=== PATIENT | male | born 1950 | race Caucasian/White ===

== ENCOUNTER → 2023-05-09 23:59 | Outpatient (BNV) | payer MEDICARE, OTHER, SELFPAY | PROVIDERS: PCP Internal Medicine; Visit Provider Internal Medicine | DX: R07.89 Other chest pain (principal); I10 Essential (primary) hypertension; Z95.5 Presence of coronary angioplasty implant and graft; E78.5 Hyperlipidemia, unspecified | CPT/HCPCS: 99223 ==

== ENCOUNTER 2023-06-05 14:44 | Outpatient (AMB) | payer MEDICARE, OTHER, SELFPAY ==
[2023-06-05 15:01] VITALS: BP 120/56; PULSE 52; BMI 31.5
--- NOTE | 2023-06-05 15:01 | MHC.OFFVIS ---
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: No Accompanied by: Spouse Allergies No Known Allergies Allergy (Verified 06/05/23 15:02) Medication List - Last Reconciled 06/05/23 by Dwayne Gerard MD alfuzosin ER 10 mg PO DAILY amlodipine 5 mg PO DAILY aspirin (Adult Aspirin Regimen) 81 mg PO DAILY atorvastatin 80 mg PO DAILY carvedilol 6.25 mg PO BID donepezil 5 mg PO DAILY dulaglutide (Trulicity) 4.5 mg subcut QWEEK empagliflozin (Jardiance) 10 mg PO DAILY glipizide 10 mg PO DAILY irbesartan 150 mg PO DAILY isosorbide mononitrate ER 30 mg PO DAILY metformin ER 750 mg PO BID mirabegron ER (Myrbetriq) 50 mg PO DAILY omeprazole 20 mg PO DAILY HPI HPI Comments History of Present Illness Details Lopez returns for follow-up after recent hospitalization to [facility]. He was admitted for substernal chest pain and he had described it as if it was a 1000 lb weight sitting on his chest. Troponins were elevated. There was conduction system disease in the EKG. High blood pressure initially but then improved. Eventually, underwent cardiac catheterization but there was no new findings and no interventions performed. He has not had any further chest pain since that time. would like to switch his cardiac care from [facility]. Otherwise, there is a history of prior PCI to LAD in 2008 and circumflex in 2017. According to , there was also an episode of syncope just about the time he also had chest pain. Somehow this was not described during the hospitalization. That has not recurred as well. states that during the actual syncope/chest pain episode he also had bladder incontinence. Etiology for the syncope part is not clear. 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 Essential hypertension Type 2 diabetes mellitus with unspecified complications Bifascicular block Atherosclerotic cardiovascular disease Surgical History (Updated 06/05/23 @ 15:05 by Dania Hester) Hx of cardiac cath Family History (Updated 06/05/23 @ 15:05 by Dania Hester) Mother Heart problem Social History (Updated 06/05/23 @ 15:06 by Dania Hester) Alcohol intake: former Patient Tobacco Use Status: Former Tobacco user Quit Date: 40 years ago Review of Systems Const Denies chills, Denies daytime sleepiness, Denies fatigue, Denies fever(s), Denies frequent falls, Denies night sweats, Denies snoring, Denies weakness, Denies weight gain and Denies weight loss Eyes Denies loss of vision ENT Denies dizziness and Denies hearing loss Card Denies chest pain, Denies chest pain with activity, Denies syncope, Denies rapid heart rate, Denies edema, Denies claudication, Denies leg edema, Denies lightheadedness, Denies palpitations, Denies dyspnea, Denies dyspnea on exertion and Denies orthopnea Resp Denies cough, Denies excessive phlegm production, Denies dyspnea, Denies dyspnea on exertion, Denies snoring and Denies wheezing GI Denies abdominal pain, Denies hematochezia, Denies change in bowel habits, Denies change in stool character, Denies heartburn, Denies nausea and Denies vomiting Denies hematuria, Denies dysuria and Denies urinary frequency Musc Denies arthralgias, Denies muscle weakness, Denies numbness and Denies tingling Skin/Breast Denies nail changes and Denies rash Neuro Denies Abnormal speech present, Denies dizziness, Denies syncope, Denies frequent falls, Denies loss of vision, Denies memory loss, Denies numbness, Denies tingling and Denies weakness Psych Denies depression and Denies memory loss Endo Denies fatigue and Denies palpitations Aller/Immun Denies wheezing Physical Exam Vital Signs: Last Vital Signs Pulse 52 06/05/23 15:01 BP 120/56 L 06/05/23 15:01 BMI result Body Mass Index 31.5 Const General: comfortable and no acute distress Orientation/consciousness: patient oriented x3 HEENT Other: Unremarkable Head: Yes normal to inspection Neck Neck: Yes normal visual inspection Chest Chest palpation & inspection: normal inspection of the chest Resp Auscultation: clear to auscultation bilaterally Cardio Palpation: normal PMI Heart sounds: S1 normal heart sound present, S2 normal heart sound present, no gallops, no murmurs and no rubs GI Palpation (GI): Soft to palpation Back/Spine/Pelvis Other: unremarkable Skin General skin exam: no rashes or lesions noted Neuro General: patient oriented x3 Speech: No Abnormal speech present Extrem General: Yes normal to inspection Psych Mental Status: mental status grossly normal Office Procedures EKG Details: EKG with sinus bradycardia at 52/Min; [place] prolongation to 244 milliseconds; right bundle-branch block and left anterior fascicular block. [id number], Complete Assessment & Plan Assessment & Plan (1) Atherosclerotic cardiovascular disease: Code(s): I25.10 - Atherosclerotic heart disease of [place] coronary artery without angina pectoris Plan: In the most recent cardiac catheterization from 04/2023, patent stents in the mid LAD and mid circumflex. Chronic 40% ostial OM2 stenosis. Minimal irregularities in the left main and RCA. Continue aspirin long-term. Continue statins. Per [facility] chart, LDL controlled at 70 mg/dL. Triglycerides 60 mg/dL. (2) Bifascicular block: Code(s): I45.2 - Bifascicular block Plan: Regarding the question of syncope that the is describing, we can do a 2 week Holter to look for any advanced degree heart blocks. Coreg can worsen conduction system disease but he also needs for hypertension. Hence may continue for now. (3) Essential hypertension: Code(s): I10 - Essential (primary) hypertension Plan: Seems controlled. Currently on list of meds including amlodipine, carvedilol, irbesartan. No changes. Plan Discussed in detail with who came for appointment. Orders: Orders ECG 14 day holter monitor Today I45.2 - Bifascicular block Coding Level of Care Code Est Pt Level 4 (34848) Diagnoses Atherosclerotic cardiovascular disease I25.10 Bifascicular block I45.2 Essential hypertension I10 CPT Codes EKG - CPT: 50544-[id number], Complete ([id number])
== END 2023-06-05 15:34 | disposition home or self-care (01) ==
PROVIDERS: PCP Internal Medicine; Visit Provider Internal Medicine
DX: I25.10 Atherosclerotic heart disease of native coronary artery without angina pectoris (principal); I45.2 Bifascicular block; I10 Essential (primary) hypertension
CPT/HCPCS: 93010; 99214

== ENCOUNTER → 2023-06-05 14:44 | Outpatient (BNVA) | payer MEDICARE, OTHER, SELFPAY | PROVIDERS: PCP Internal Medicine; Visit Provider Internal Medicine | DX: I25.10 Atherosclerotic heart disease of native coronary artery without angina pectoris (principal); I10 Essential (primary) hypertension; I45.2 Bifascicular block | CPT/HCPCS: 93005; 99212 ==

== ENCOUNTER → 2023-06-10 10:32 | Outpatient (REF) | payer MEDICARE, OTHER, SELFPAY ==
--- NOTE | 2023-06-10 10:38 | HM_ITS ---
* Total monitoring time 9 days and 14 hours. * Underlying rhythm is sinus with an average ventricular rate of 56/Min. Range 45 to 84/Min. * Occasional PVCs with a burden of 0.9%. Some couplets. Bigeminy noted. Multiple morphologies. * Occasional supraventricular ectopy with a burden of 0.6%. Very brief runs. * No significant pauses or AV blocks. * No patient markers or diary events. MTDD
== END ==
LOC: HO.CARD 10:32
PROVIDERS: Visit Provider Internal Medicine
DX: I45.2 Bifascicular block (principal)
CPT/HCPCS: 93246

== ENCOUNTER → 2023-06-10 10:38 | Outpatient (BNV) | payer MEDICARE, OTHER, SELFPAY | PROVIDERS: Visit Provider Internal Medicine | DX: I49.3 Ventricular premature depolarization (principal) | CPT/HCPCS: 93248 ==

== ENCOUNTER 2023-09-04 13:47 | Outpatient (AMB) | payer MEDICARE, OTHER, SELFPAY ==
[2023-09-04 13:50] VITALS: BP 140/60; PULSE 50; O2SAT 99; BMI 30.7
--- NOTE | 2023-09-04 13:50 | MHC.OFFVIS ---
Vital Signs 09/04/23 13:50 Height 5 ft 2 in Weight 167 lb 15.876 oz BMI 30.7 BP 140/60 H Blood Pressure Location Rt brachial Position Sitting Pulse 50 Pulse Source Pulse Oximeter Pulse Oximetry (%) 99 Intake Visit Reasons: 3 mth fu after holter Clinical Education Academic Coordinator Required: No Accompanied by: Self / Same As Patient Allergies No Known Allergies Allergy (Verified 06/05/23 15:02) Medication List - Last Reconciled 09/04/23 by Dwayne Gerard MD alfuzosin ER 10 mg PO DAILY amlodipine 5 mg PO DAILY aspirin (Adult Aspirin Regimen) 81 mg PO DAILY atorvastatin 80 mg PO DAILY carvedilol 6.25 mg PO BID donepezil 5 mg PO DAILY dulaglutide (Trulicity) 4.5 mg subcut QWEEK empagliflozin (Jardiance) 10 mg PO DAILY glipizide ER 5 mg PO DAILY irbesartan 150 mg PO DAILY isosorbide mononitrate ER 30 mg PO DAILY metformin ER 750 mg PO BID mirabegron ER (Myrbetriq) 50 mg PO DAILY omeprazole 20 mg PO DAILY HPI Comments Details: Lopez returns for follow-up. To recall, he was admitted to [facility] 2 months with chest pain. Troponins were elevated. There was conduction system disease in the EKG. High blood pressure initially but then improved. Eventually, underwent cardiac catheterization but there was no new findings and no interventions performed. He has not had any further chest pain since that time. Prior to that, there is a history of PCI to LAD in 2009 and PCI to circumflex in 2017. He then switched his care to [facility]. According to , there was also an episode of syncope just about the time he also had chest pain. No issues since that time. Currently, main complaint is just feeling tired and sleepy all day. 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 Essential hypertension Type 2 diabetes mellitus with unspecified complications Bifascicular block Atherosclerotic cardiovascular disease Surgical History Hx of cardiac cath Family History Mother Heart problem Social History Alcohol intake: former Patient Tobacco Use Status: Former Tobacco user Quit Date: 40 years ago Review of Systems Const Denies chills, Denies fatigue, Denies fever(s), Denies frequent falls, Denies weakness, Denies weight gain and Denies weight loss ENT Denies dizziness Card Denies chest pain, Denies leg edema, Denies lightheadedness, Denies palpitations, Denies dyspnea and Denies dyspnea on exertion Resp Denies cough, Denies dyspnea and Denies dyspnea on exertion GI Denies hematochezia Musc Denies abnormal gait, Denies muscle weakness, Denies numbness, Denies radiating pain into limb and Denies tingling Neuro Denies abnormal gait, Denies dizziness, Denies frequent falls, Denies numbness, Denies tingling and Denies weakness Endo Denies fatigue and Denies palpitations Physical Exam Vital Signs: Last Vital Signs Pulse 50 09/04/23 13:50 BP 140/60 H 09/04/23 13:50 Pulse Ox 99 09/04/23 13:50 BMI result Body Mass Index 30.7 Const General: comfortable and no acute distress Orientation/consciousness: patient oriented x3 HEENT Other: Unremarkable Head: Yes normal to inspection Neck Neck: Yes normal visual inspection Chest Chest palpation & inspection: normal inspection of the chest Resp Auscultation: clear to auscultation bilaterally Cardio Palpation: normal PMI Heart sounds: S1 normal heart sound present, S2 normal heart sound present, no gallops, no murmurs and no rubs GI Palpation (GI): Soft to palpation Back/Spine/Pelvis Other: unremarkable Skin General skin exam: no rashes or lesions noted Neuro General: patient oriented x3 Extrem General: Yes normal to inspection Psych Mental Status: mental status grossly normal Assessment & Plan Assessment & Plan (1) Atherosclerotic cardiovascular disease: Code(s): I25.10 - Atherosclerotic heart disease of [place] coronary artery without angina pectoris Category: Medical Plan: In the most recent cardiac catheterization from 04/2023, patent stents in the mid LAD and mid circumflex. Chronic 40% ostial OM2 stenosis. Minimal irregularities in the left main and RCA. Continue aspirin and statins. Per [facility] chart, LDL controlled at 70 mg/dL. Triglycerides 60 mg/dL. (2) Bifascicular block: Code(s): I45.2 - Bifascicular block Category: Medical Plan: Due to question of syncope he underwent Holter monitor. That showed underlying sinus bradycardia with an average rate of 56/Min. Rare PVCs/PACs but no significant pauses or heart blocks. Hence can monitor the EKGs. (3) Essential hypertension: Code(s): I10 - Essential (primary) hypertension Category: Medical Plan: Seems controlled. Currently on list of meds including amlodipine, carvedilol, irbesartan. Due to complaints of tiredness and sleepiness, we discussed about cutting back on carvedilol but they would like to just leave things the way they are. (4) Fatigue: Code(s): R53.83 - Other fatigue Category: Medical Plan: Due to complaints of daytime fatigue and sleepiness, we will get a home sleep study. Plan Discussed in detail with who came for appointment. Orders: Orders RT home sleep study Today G47.33 - Obstructive sleep apnea (adult) (pediatric)
== END 2023-09-04 14:17 | disposition home or self-care (01) ==
PROVIDERS: PCP Internal Medicine; Visit Provider Internal Medicine
DX: I25.10 Atherosclerotic heart disease of native coronary artery without angina pectoris (principal); I45.2 Bifascicular block; I10 Essential (primary) hypertension; R53.83 Other fatigue
CPT/HCPCS: 99214

== ENCOUNTER → 2023-09-04 13:47 | Outpatient (BNVA) | payer MEDICARE, OTHER, SELFPAY | PROVIDERS: PCP Internal Medicine; Visit Provider Internal Medicine | DX: R07.9 Chest pain, unspecified (principal); I45.2 Bifascicular block; I25.10 Atherosclerotic heart disease of native coronary artery without angina pectoris; I10 Essential (primary) hypertension; R53.83 Other fatigue | CPT/HCPCS: 99212 ==

== ENCOUNTER → 2023-10-14 15:57 | Outpatient (REF) | payer MEDICARE, OTHER, SELFPAY | LOC: HO.SL 15:57 | PROVIDERS: Visit Provider Internal Medicine | DX: Z13.89 Encounter for screening for other disorder (principal) ==

== ENCOUNTER 2023-12-04 11:01 | Outpatient (AMB) | payer MEDICARE, OTHER, SELFPAY ==
[2023-12-04 11:02] VITALS: BP 100/60; PULSE 62; BMI 29.9
--- NOTE | 2023-12-04 11:02 | A.OFFVIS_ITS ---
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: No Accompanied by: Spouse Allergies No Known Allergies Allergy (Verified 06/05/23 15:02) Medication List - Last Reconciled 12/04/23 by Dwayne Gerard MD alfuzosin ER 10 mg PO DAILY aspirin (Adult Aspirin Regimen) 81 mg PO DAILY atorvastatin 80 mg PO DAILY donepezil 5 mg PO DAILY empagliflozin (Jardiance) 10 mg PO DAILY glipizide ER 5 mg PO DAILY irbesartan 150 mg PO DAILY isosorbide mononitrate ER 30 mg PO DAILY metformin ER 750 mg PO ONCE mirabegron ER (Myrbetriq) 50 mg PO DAILY omeprazole 20 mg PO DAILY semaglutide (Ozempic) 0.25 mg subcut QWEEK HPI Comments Details: Lopez returns for follow-up. To recall, he was admitted to [facility] few months back with chest pain. Troponins were elevated. There was conduction system disease in the EKG. High blood pressure initially but then improved. Eventually, underwent cardiac catheterization but there was no new findings and no interventions performed. He has not had any further chest pain since that time. Prior to that, there is a history of PCI to LAD in 2008 and PCI to circumflex in 2017. He then switched his care to [facility]. Overall, main complaint is just feeling tired and sleepy. It seems there may be component of depression as well. From the cardiac standpoint, we ordered home sleep study. It seems that was done twice but incorrectly. Hence we do not have any results. Also low blood pressure might be an issue and today blood pressure is only 100/60 mmHg. It seems that PCP had advised cutting back on the amlodipine. 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 Essential hypertension Type 2 diabetes mellitus with unspecified complications Bifascicular block Atherosclerotic cardiovascular disease Surgical History Hx of cardiac cath Family History Mother Heart problem Social History Alcohol intake: former Patient Tobacco Use Status: Former Tobacco user Review of Systems Const Denies chills, Denies fatigue, Denies fever(s), Denies weight gain and Denies weight loss ENT Denies dizziness Card Denies chest pain, Denies leg edema, Denies lightheadedness, Denies palpitations, Denies dyspnea on exertion, Denies orthopnea and Denies other Resp Denies cough and Denies dyspnea on exertion GI Denies hematochezia and Denies change in stool character Musc Denies abnormal gait, Denies muscle weakness, Denies numbness, Denies radiating pain into limb and Denies tingling Neuro Denies abnormal gait, Denies dizziness, Denies numbness and Denies tingling Endo Denies fatigue and Denies palpitations Physical Exam Vital Signs: Last Vital Signs Pulse 62 12/04/23 11:02 BP 100/60 12/04/23 11:02 BMI result Body Mass Index 29.9 Const General: comfortable and no acute distress Orientation/consciousness: patient oriented x3 HEENT Other: Unremarkable Head: Yes normal to inspection Neck Neck: Yes normal visual inspection Chest Chest palpation & inspection: normal inspection of the chest Resp Auscultation: clear to auscultation bilaterally Cardio Palpation: normal PMI Heart sounds: S1 normal heart sound present, S2 normal heart sound present, no gallops, no murmurs and no rubs GI Palpation (GI): Soft to palpation Back/Spine/Pelvis Other: unremarkable Skin General skin exam: no rashes or lesions noted Neuro General: patient oriented x3 Extrem General: Yes normal to inspection Psych Mental Status: mental status grossly normal Assessment & Plan Assessment & Plan (1) Atherosclerotic cardiovascular disease: Code(s): I25.10 - Atherosclerotic heart disease of [place] coronary artery without angina pectoris Category: Medical Plan: Cardiac catheterization from 04/2023- patent stents in the mid LAD and mid circumflex. Chronic 40% ostial OM2 stenosis. Minimal irregularities in the left main and RCA. Continue aspirin and statins. [place] [facility] [place], LDL controlled at 70 mg/dL. Triglycerides 60 mg/dL. (2) Bifascicular block: Code(s): I45.2 - Bifascicular block Category: Medical Plan: Due to question of syncope he underwent Holter monitor. That showed underlying sinus bradycardia with an average rate of 56/Min. Rare PVCs/PACs but no significant pauses or heart blocks. We will monitor on EKGs. (3) Essential hypertension: Code(s): I10 - Essential (primary) hypertension Category: Medical Plan: Per patient and , blood pressure has been low. PCP had advised cutting back on the amlodipine but they are not taking at all. He is also not taking carvedilol anymore. In spite of this, blood pressure is only 100/60 mm Hg. This could also contribute tiredness and fatigue. As he has got no angina, we can stop the long-acting nitrates. They will monitor blood pressures. Next step would be to cut back on the irbesartan if needed. (4) Fatigue: Code(s): R53.83 - Other fatigue Category: Medical Plan: We attempted home sleep study twice but not done correctly. Hence we can try in-lab sleep study. Plan Discussed with significant other. She agrees with plan. Orders: Orders RT PSG in-lab sleep study Today G47.33 - Obstructive sleep apnea (adult) (pediatric) Coding Level of Care Code Est Pt Level 4 (40641) Diagnoses Atherosclerotic cardiovascular disease I25.10 Bifascicular block I45.2 Essential hypertension I10 Fatigue R53.83
== END 2023-12-04 11:39 | disposition home or self-care (01) ==
PROVIDERS: PCP Internal Medicine; Visit Provider Internal Medicine
DX: I25.10 Atherosclerotic heart disease of native coronary artery without angina pectoris (principal); I45.2 Bifascicular block; I10 Essential (primary) hypertension; R53.83 Other fatigue
CPT/HCPCS: 99214

== ENCOUNTER → 2023-12-04 11:01 | Outpatient (BNVA) | payer MEDICARE, OTHER, SELFPAY | PROVIDERS: PCP Internal Medicine; Visit Provider Internal Medicine | DX: I25.10 Atherosclerotic heart disease of native coronary artery without angina pectoris (principal); I10 Essential (primary) hypertension; I45.2 Bifascicular block; R53.83 Other fatigue; G47.33 Obstructive sleep apnea (adult) (pediatric) | CPT/HCPCS: 99212 ==

== ENCOUNTER → 2023-12-11 20:30 | Outpatient (REF) | payer MEDICARE, OTHER, SELFPAY | LOC: HO.SL 20:30 | PROVIDERS: PCP Internal Medicine; Visit Provider Internal Medicine | DX: G47.33 Obstructive sleep apnea (adult) (pediatric) (principal) | CPT/HCPCS: 95810 ==

== ENCOUNTER → 2023-12-11 22:59 | Outpatient (BNV) | payer MEDICARE, OTHER, SELFPAY | PROVIDERS: PCP Internal Medicine; Visit Provider Internal Medicine | DX: G47.33 Obstructive sleep apnea (adult) (pediatric) (principal) | CPT/HCPCS: 95810 ==

== ENCOUNTER → 2024-01-21 23:59 | Outpatient (BNV) | payer MEDICARE, OTHER, SELFPAY ==
--- NOTE | 2024-01-28 18:51 | A.OFFVIS_ITS ---
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 Overall normal device function. [id number] Cardiac Device Interrogation, pacemaker Procedure code (CPT) selection complete Assessment & Plan Assessment & Plan (1) Complete heart block: Code(s): I44.2 - Atrioventricular block, complete Category: Medical Plan x Coding Level of Care Code Procedure Only Diagnoses Complete heart block I44.2 CPT Codes Cardiac Device Check - Cardiac Device 12: 43440-Wmizox Cardiac Device Interrogation, pacemaker ([id number])
== END ==
PROVIDERS: PCP Internal Medicine; Visit Provider Internal Medicine
DX: I44.2 Atrioventricular block, complete (principal); Z95.0 Presence of cardiac pacemaker
CPT/HCPCS: 93294

== ENCOUNTER 2024-01-28 11:13 | Outpatient (AMB) | payer MEDICARE, OTHER, SELFPAY ==
[2024-01-28 11:15] VITALS: BP 112/58; PULSE 70; BMI 29.8
--- NOTE | 2024-01-28 11:15 | MHC.OFFVIS ---
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 To recall, he was admitted to [facility] 04/2023 with chest pain. Troponins were elevated. There was conduction system disease in the EKG. High blood pressure initially but then improved. Eventually, underwent cardiac catheterization but there was no new findings and no interventions performed. Prior to that, there is a history of PCI to LAD in 2008 and PCI to circumflex in 2016. He then switched his care to [facility]. In December 2023, it seems that he has some chest pain and near-syncope and got admitted to [facility]. At that time, found to be in complete heart block. Then underwent cardiac catheterization but no significant findings. Reported as normal coronaries. Subsequently, underwent dual-chamber pacemaker implantation. Overall, main complaint is just tiredness. Unclear if it is related depression. There does not seem to be any obvious cardiac etiology. 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 Essential hypertension Type 2 diabetes mellitus with unspecified complications Bifascicular block Atherosclerotic cardiovascular disease Surgical History (Updated 01/28/24 @ 11:19 by Jeimy Cutler CMA) Pacemaker Hx of cardiac cath Family History Mother Heart problem Social History Alcohol intake: former Patient Tobacco Use Status: Former Tobacco user Review of Systems Const Denies chills, Denies fatigue, Denies fever(s), Denies weight gain and Denies weight loss ENT Denies dizziness Card Denies chest pain, Denies leg edema, Denies lightheadedness, Denies palpitations, Reports dyspnea on exertion, Denies orthopnea and Denies other Resp Denies cough and Reports dyspnea on exertion GI Denies hematochezia and Denies change in stool character Musc Denies abnormal gait, Denies muscle weakness, Denies numbness, Denies radiating pain into limb and Denies tingling Neuro Denies abnormal gait, Denies dizziness, Denies numbness and Denies tingling Endo Denies fatigue and Denies palpitations Physical Exam Vital Signs: Last Vital Signs Pulse 70 01/28/24 11:15 BP 112/58 L 01/28/24 11:15 BMI result Body Mass Index 29.8 Const General: comfortable and no acute distress Orientation/consciousness: patient oriented x3 HEENT Other: Unremarkable Head: Yes normal to inspection Neck Neck: Yes normal visual inspection Chest Chest palpation & inspection: normal inspection of the chest Resp Auscultation: clear to auscultation bilaterally Cardio Palpation: normal PMI Heart sounds: S1 normal heart sound present, S2 normal heart sound present, no gallops, no murmurs and no rubs GI Palpation (GI): Soft to palpation Back/Spine/Pelvis Other: unremarkable Skin General skin exam: no rashes or lesions noted Neuro General: patient oriented x3 Extrem General: Yes normal to inspection Psych Mental Status: mental status grossly normal Assessment & Plan Assessment & Plan (1) Atherosclerotic cardiovascular disease: Code(s): I25.10 - Atherosclerotic heart disease of [place] coronary artery without angina pectoris Category: Medical Plan: Cardiac catheterization from 04/2023- patent stents in the mid LAD and mid circumflex. Chronic 40% ostial OM2 stenosis. Minimal irregularities in the left main and RCA. Cardiac catheterization from 12/2023 at [place]- reported normal coronaries. Continue aspirin and statins. Per records from [place], LDL 38 mg/dL, triglycerides 45 mg/dL. (2) Complete heart block: Code(s): I44.2 - Atrioventricular block, complete Category: Medical Plan: Admitted with complete heart block to [facility] 01/06/2024. Status post permanent pacemaker. We can check with next visit. Otherwise, being followed remotely. (3) Essential hypertension: Code(s): I10 - Essential (primary) hypertension Category: Medical Plan: Due to low blood pressure issues, off amlodipine, carvedilol, long-acting nitrates. If necessary, we can cut back on the irbesartan. (4) Fatigue: Code(s): R53.83 - Other fatigue Category: Medical Plan: In-lab sleep study reported as no evidence of sleep apnea and also minimal snoring. Unclear if it is related to any depression. He might be seeing a psychiatrist. Plan Discussed with significant other. Coding Level of Care Code Est Pt Level 4 (66673) Diagnoses Atherosclerotic cardiovascular disease I25.10 Complete heart block I44.2 Essential hypertension I10 Fatigue R53.83
== END 2024-01-28 11:50 | disposition home or self-care (01) ==
PROVIDERS: PCP Internal Medicine; Visit Provider Internal Medicine
DX: I25.10 Atherosclerotic heart disease of native coronary artery without angina pectoris (principal); I44.2 Atrioventricular block, complete; I10 Essential (primary) hypertension; R53.83 Other fatigue
CPT/HCPCS: 99214

== ENCOUNTER → 2024-01-28 11:13 | Outpatient (BNVA) | payer MEDICARE, OTHER, SELFPAY | PROVIDERS: PCP Internal Medicine; Visit Provider Internal Medicine | DX: I25.10 Atherosclerotic heart disease of native coronary artery without angina pectoris (principal); I44.2 Atrioventricular block, complete; I10 Essential (primary) hypertension; R53.83 Other fatigue | CPT/HCPCS: 99212 ==

== ENCOUNTER → 2024-04-08 23:59 | Outpatient (BNV) | payer MEDICARE, OTHER, SELFPAY ==
--- NOTE | 2024-04-18 18:57 | A.OFFVIS_ITS ---
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 Overall normal device function. [id number]-Gvqemd Cardiac Device Interrogation, pacemaker Procedure code (CPT) selection complete Assessment & Plan Assessment & Plan (1) Pacemaker: Code(s): Z95.0 - Presence of cardiac pacemaker Category: Surgical (2) Complete heart block: Code(s): I44.2 - Atrioventricular block, complete Category: Medical Plan x Coding Level of Care Code Procedure Only Diagnoses Pacemaker Z95.0 Complete heart block I44.2 CPT Codes Cardiac Device Check - Cardiac Device 12: 15735-Hlmdlm Cardiac Device Interrogation, pacemaker ([id number])
== END ==
PROVIDERS: PCP Internal Medicine; Visit Provider Internal Medicine
DX: I44.2 Atrioventricular block, complete (principal); Z95.0 Presence of cardiac pacemaker
CPT/HCPCS: 93294

== ENCOUNTER 2024-05-31 13:46 | Outpatient (AMB) | payer MEDICARE, OTHER, SELFPAY ==
--- NOTE | 2024-05-31 14:02 | MHC.OFFVIS ---
Vital Signs 05/31/24 14:03 Height 5 ft 2 in Weight 165 lb 5.547 oz BMI 30.2 BP 130/78 Blood Pressure Location Lt brachial Position Sitting Pulse 68 Pulse Source Monitor Intake Visit Reasons: f/up/pacer check Allergies No Known Allergies Allergy (Verified 06/05/23 15:02) Medication List - Last Reconciled 05/31/24 by Dwayne Gerard MD aspirin (Adult Aspirin Regimen) 81 mg PO DAILY atorvastatin 80 mg PO DAILY donepezil 5 mg PO DAILY empagliflozin (Jardiance) 10 mg PO DAILY glipizide ER 5 mg PO DAILY irbesartan 150 mg PO DAILY metformin ER 750 mg PO ONCE mirabegron ER (Myrbetriq) 50 mg PO DAILY omeprazole 20 mg PO DAILY semaglutide (Ozempic) 0.25 mg subcut QWEEK HPI Comments Details: Lopez returns for follow-up. To recall, he was admitted to [facility] 04/2023 with chest pain. Troponins were elevated. There was conduction system disease in the EKG. High blood pressure initially but then improved. Eventually, underwent cardiac catheterization but there was no new findings and no interventions performed. Prior to that, there is a history of PCI to LAD in 2008 and PCI to circumflex in 2016. He then switched his care to [facility]. In December 2023, it seems that he has some chest pain and near-syncope and got admitted to [facility]. At that time, found to be in complete heart block. Then underwent cardiac catheterization but no significant findings. Reported as normal coronaries. Subsequently, underwent dual-chamber pacemaker implantation. Since last seen, he states he feels good. No cardiac symptoms whatsoever. 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 Essential hypertension Type 2 diabetes mellitus with unspecified complications Bifascicular block Atherosclerotic cardiovascular disease Surgical History (Updated 04/18/24 @ 18:58 by Dwayne Gerard MD) Pacemaker Hx of cardiac cath Family History Mother Heart problem Social History Alcohol intake: former Patient Tobacco Use Status: Former Tobacco user Review of Systems Const Denies weakness ENT Denies dizziness Card Denies chest pain, Denies chest pain with activity, Denies syncope, Denies rapid heart rate, Denies pedal edema, Denies edema, Denies leg edema, Denies lightheadedness, Denies palpitations, Denies dyspnea, Denies dyspnea on exertion and Denies orthopnea Resp Denies cough, Denies dyspnea and Denies dyspnea on exertion GI Denies hematochezia and Denies change in stool character Musc Denies abnormal gait, Denies muscle cramps, Denies muscle weakness, Denies numbness, Denies radiating pain into limb and Denies tingling Neuro Denies abnormal gait, Denies dizziness, Denies syncope, Denies numbness, Denies tingling and Denies weakness Endo Denies palpitations Physical Exam Vital Signs: Last Vital Signs Pulse 68 05/31/24 14:03 BP 130/78 05/31/24 14:03 BMI result Body Mass Index 30.2 Const General: comfortable and no acute distress Orientation/consciousness: patient oriented x3 HEENT Other: Unremarkable Head: Yes normal to inspection Neck Neck: Yes normal visual inspection Chest Chest palpation & inspection: normal inspection of the chest Resp Auscultation: clear to auscultation bilaterally Cardio Palpation: normal PMI Heart sounds: S1 normal heart sound present, S2 normal heart sound present, no gallops, no murmurs and no rubs GI Palpation (GI): Soft to palpation Back/Spine/Pelvis Other: unremarkable Skin General skin exam: no rashes or lesions noted Neuro General: patient oriented x3 Extrem General: Yes normal to inspection Psych Mental Status: mental status grossly normal Office Procedures Cardiac Device Check Cardiac Device Check Details: Pacemaker interrogated today. Dual-chamber device, programmed in AAIR-DDDR mode. Battery status 14 years. Atrial pacing 55%. Ventricular pacing 7.1%. AT/AF burden <0.1%. No episodes since last [facility] transmission. Normal lead parameters. Underlying sinus bradycardia at 48/Min. [id number] Cardiac Device Check, pacemaker dual lead Procedure code (CPT) selection complete EKG Details: EKG with underlying sinus rhythm, prolonged SD, right bundle-branch block and left anterior fascicular block. Bifascicular block. [id number]-Bhcaqjuygnbhdmvyl, Complete Assessment & Plan Assessment & Plan (1) Atherosclerotic cardiovascular disease: Code(s): I25.10 - Atherosclerotic heart disease of rampart coronary artery without angina pectoris Category: Medical Plan: Cardiac catheterization from 04/2023- patent stents in the mid LAD and mid circumflex. Chronic 40% ostial OM2 stenosis. Minimal irregularities in the left main and RCA. Cardiac catheterization from 12/2023 at [facility]- reported normal coronaries. Continue aspirin and statins. Per records from [facility], LDL 38 mg/dL, triglycerides 45 mg/dL. (2) Complete heart block: Code(s): I44.2 - Atrioventricular block, complete Category: Medical Plan: Admitted with complete heart block to [facility] 01/06/2024. Status post permanent pacemaker. Normally functioning. Can be followed remotely. (3) Essential hypertension: Code(s): I10 - Essential (primary) hypertension Category: Medical Plan: Due to low blood pressure issues, off amlodipine, carvedilol, long-acting nitrates. No further changes made today. Coding Level of Care Code Est Pt Level 4 (00339) Diagnoses Atherosclerotic cardiovascular disease I25.10 Complete heart block I44.2 Essential hypertension I10 CPT Codes Cardiac Device Check - Cardiac Device 2: 36540-JX Cardiac Device Check, pacemaker dual lead ([id number]) EKG - CPT: 37163-Qfilzftoosotkukyj, Complete ([id number])
[2024-05-31 14:03] VITALS: BP 130/78; PULSE 68; BMI 30.2
== END 2024-05-31 14:27 | disposition home or self-care (01) ==
PROVIDERS: PCP Internal Medicine; Visit Provider Internal Medicine
DX: I25.10 Atherosclerotic heart disease of native coronary artery without angina pectoris (principal); I44.2 Atrioventricular block, complete; I10 Essential (primary) hypertension
CPT/HCPCS: 93010; 93280; 99214

== ENCOUNTER → 2024-05-31 13:46 | Outpatient (BNVA) | payer MEDICARE, OTHER, SELFPAY | PROVIDERS: PCP Internal Medicine; Visit Provider Internal Medicine | DX: Z45.018 Encounter for adjustment and management of other part of cardiac pacemaker (principal); I25.10 Atherosclerotic heart disease of native coronary artery without angina pectoris; I44.2 Atrioventricular block, complete; I10 Essential (primary) hypertension; I45.2 Bifascicular block; R94.31 Abnormal electrocardiogram [ECG] [EKG] | CPT/HCPCS: 93005; 93280; 99212 ==

== ENCOUNTER → 2024-07-23 23:59 | Outpatient (BNV) | payer MEDICARE, OTHER, SELFPAY ==
--- NOTE | 2024-07-26 14:10 | MHC.OFFVIS ---
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 Overall normal device function. [id number] Cardiac Device Interrogation, pacemaker Procedure code (CPT) selection complete Assessment & Plan Assessment & Plan (1) Pacemaker: Code(s): Z95.0 - Presence of cardiac pacemaker Category: Surgical (2) Bifascicular block: Code(s): I45.2 - Bifascicular block Category: Medical Plan x Coding Level of Care Code Procedure Only Diagnoses Pacemaker Z95.0 Bifascicular block I45.2 CPT Codes Cardiac Device Check - Cardiac Device 12: 49442-Fngziz Cardiac Device Interrogation, pacemaker ([id number])
== END ==
PROVIDERS: PCP Internal Medicine; Visit Provider Internal Medicine
DX: I45.2 Bifascicular block (principal); Z95.0 Presence of cardiac pacemaker
CPT/HCPCS: 93294

== ENCOUNTER → 2024-10-21 23:59 | Outpatient (BNV) | payer MEDICARE, OTHER, SELFPAY ==
--- NOTE | 2024-10-27 20:44 | A.OFFVIS_ITS ---
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 Overall normal device function. [id number] Cardiac Device Interrogation, pacemaker Procedure code (CPT) selection complete Assessment & Plan Assessment & Plan (1) Pacemaker: Code(s): Z95.0 - Presence of cardiac pacemaker Category: Surgical (2) Complete heart block: Code(s): I44.2 - Atrioventricular block, complete Category: Medical Plan x Coding Level of Care Code Procedure Only Diagnoses Pacemaker Z95.0 Complete heart block I44.2 CPT Codes Cardiac Device Check - Cardiac Device 12: 06181-Affgox Cardiac Device Interrogation, pacemaker ([id number])
== END ==
PROVIDERS: PCP Internal Medicine; Visit Provider Internal Medicine
DX: I44.2 Atrioventricular block, complete (principal); Z95.0 Presence of cardiac pacemaker
CPT/HCPCS: 93294

== ENCOUNTER 2024-12-01 13:36 | Outpatient (AMB) | payer MEDICARE, OTHER, SELFPAY ==
--- OUTSIDE RECORDS SUMMARY | 2024-07-20 09:00 | XMS_ITS | Encounter Summary ---
Author Name [facility] [facility] [place] Address [address] [place] [address] Care Team Providers Care Track Helper Name Role Phone FORTINO SIDHU Primary Care Provider Unavailabl e Insurance Providers: All historical and current Section Date Range: From patient's date of to the date document was created. This section includes the names of all active insurance providers for the patient. Insurance Provider Type of Coverage Plan Name Start of Policy Coverage End of Policy Coverage Group Number Member ID Insurance Provider's Telephone Number Policy Quiles's Name Patient's Relationship to Policy Quiles MEDICARE (WNR) MEDICARE (M) PART B Nov 16, 2022 PART B [id number] [place] PAT[place] MEDICARE (WNR) MEDICARE (M) PART A May 19, 2014 PART A [id number] [place] PATIENT MEDICARE (WNR) MEDICARE (M) PART A May 19, 2014 PART A [id number] [place] PATIENT Selected Encounter This section includes the information on record at [place] for the Encounter. Date/Time Encounter Type Encounter Description Reason Provider Source Jul 20, 2024 01:00 PM OFFICE O/P [place] 60 MIN [facility]AL [facility] - IND ICD-10-CM F43.12 Post-traumatic stress disorder, chronic ROGERBALAJI IHYanely Encounter Template Text not used by [facility] Assessments - Encounter Diagnoses This section includes the primary and secondary diagnoses documented for the Encounter. Date/Time Primary/Secondary Diagnosis Diagnosis Name Provider Source Jul 20, 2024 03:05 PM PRIMARY Post-traumatic stress disorder, chronic BALAJI DURAN Plan of Treatment: Future Appointments (+ 6 months) and Future Tests (+/- 45 days) The Plan of Treatment section includes future care activities for the patient [facility] This section includes future appointments and future orders which are active, pending or scheduled. Future Appointments This section includes appointments that were scheduled to occur 6 months from the date of the Encounter, up to a maximum of 20 appointments. The data comes from all [place] treatment facilities. Appointment Date/Time Appointment Type Appointme nt Facility Name Aug 05, 2024 11:30 AM AMBULATORY - PSYCHIATRY [facility] Nov 24, 2024 01:30 PM AMBULATORY - PSYCHIATRY [facility] Social History: Smoking Status (Most current) and Tobacco Use (All prior to encounter date) This section includes the most current, and the historical, smoking and tobacco- related health factors from the [place] facility where the Encounter took place. Current Smoking Status This section includes the most current smoking, or tobacco-related health factor, from the [place] facility where the Encounter took place. Date/Time Current Smoking Status Comment Facil ity Nov 13, 2023 09:00 AM [facility]-TOBACCO FORMER USER [place] Tobacco Use History This section includes a history of the smoking, or tobacco-related health factors, that were collected on or before the date of the Encounter. The data comes from the [facility] facility where the Encounter took place. Date/Time Smoking Status/Tobacco Use Comment F acgenevieve Nov 13, 2023 09:00 AM [facility]-TOBACCO QUIT 15 YRS OR MORE [facility] Encounter Notes: All associated encounter notes This section contains the clinical notes associated to the Encounter. Date/Time Encounter Note(s) Provider Source Jul 20, 2024 02:13 PM PSYCHIATRY NOTE: LOCAL TITLE: PSYCHIATRY NOTE STANDARD TITLE: PSYCHIATRY NOTE DATE OF NOTE: JUL 20, 2024@14:13 ENTRY DATE: JUL 20, 2024@14:14 AUTHOR: BALAJI DURAN COSIGNER: URGENCY: STATUS: COMPLETED MENTAL HEALTH CLINIC: PSYCHIATRY PATIENT SUMMARY: 74 year old 100% service connected male [employer] [place] presents for mental health medication evaluation. [place] endorses PTSD symptoms of hypervigilance, depression, insomnia, and anxiety. Latoya is neatly groomed with good eye contact. He is neatly groomed and pleasant, with no evidence of psychosis, AH/VH, or roxy. Latoya denies any thoughts of self-harm and or harm to others. Latoya had a second heart attack this winter, and had a pacemaker implanted, He has retired he's not working and feels worthless , now he has time to think about things he reports he has been having more dreams/nightmares (about [place]), feels that he has no purpose . Latoya endorses increased fatigue, depression, I feel lazy , like a bum , I don't sleep , I need to get some sleep . Latoya is and has an extensive social support network. He is currently participating in individual psychotherapy at the [facility]. He is interested in psychopharmacological treatment however, he is ambivalent about mental health treatment, not wanting to be taking any substance that could be addictive or make him feel like a zombi . Please see uniform intake completed 01/06/2024 for more details. HISTORY OF PRESENT ILLNESS Mood: Depressed mood Anxiety: Endorses anxiety and PTSD symptomology. Sleep: Reports poor sleep with frequent waking approx. 3-4 hours a night. Substance Use: Denied use - former alcohol use and marijuana. Psychosis: None Suicidal/Homicidal Ideation: denies PAST PSYCHIATRIC HISTORY [place] has been apprehensive to taking mental health medications due to concerns with addiction and negative side effects. MEDICAL HISTORY: reviewed problem list in CPRS ALLERGIES: reviewed and updated in CPRS MEDICATIONS: reviewed and updated in CPRS Active Outpatient Medications (including Supplies): Active Outpatient Medications Status 1) MELATONIN 1MG CAP/TAB TAKE ONE CAPSULE/TABLET BY MOUTH AT ACTIVE BEDTIME (MAY TAKE A SECOND DOSE IF INITIAL DOSE IS NOT EFFECTIVE) Indication: FOR INSOMNIA 2) SERTRALINE HCL 25MG TAB TAKE ONE-HALF TABLET BY MOUTH ONCE ACTIVE DAILY Indication: FOR POSTTRAUMATIC STRESS SYNDROME Active Non-VA Medications Status 1) Non-VA ALFUZOSIN HCL 10MG SA TAB 10MG BY MOUTH ONCE DAILY ACTIVE 2) Non-VA AMLODIPINE BESYLATE 5MG TAB 5MG BY MOUTH ONCE DAILY ACTIVE 3) Non-VA ASPIRIN 81MG EC TAB 81MG BY MOUTH ONCE DAILY ACTIVE 4) Non-VA ATORVASTATIN CALCIUM 80MG TAB 80MG BY MOUTH ONCE ACTIVE DAILY 5) Non-VA CARVEDILOL 6.25MG TAB 6.25MG BY MOUTH TWICE DAILY ACTIVE 6) Non-VA DONEPEZIL HCL 10MG TAB 10MG BY MOUTH ONCE DAILY ACTIVE 7) Non-VA EMPAGLIFLOZIN 10MG TAB 10MG BY MOUTH ONCE DAILY ACTIVE 8) Non-VA IRBESARTAN 150MG TAB 150MG BY MOUTH ONCE DAILY ACTIVE 9) Non-VA ISOSORBIDE MONONITRATE 30MG SA TAB 30MG BY MOUTH ONCE ACTIVE DAILY 10) Non-VA LEVETIRACETAM 500MG TAB 500MG BY MOUTH TWICE DAILY ACTIVE 11) Non-VA METFORMIN HCL 750MG 24HR SA TAB 750MG BY MOUTH ONCE ACTIVE DAILY 12) Non-VA MIRABEGRON 50MG SA TAB 50MG BY MOUTH ONCE DAILY ACTIVE 13) Non-VA OMEPRAZOLE 20MG EC CAP 20MG BY MOUTH EVERY MORNING 30 ACTIVE MINUTES BEFORE BREAKFAST 14) Non-VA SEMAGLUTIDE 0.25MG/0.375ML INJ PEN 3ML 0.5MG ACTIVE SUBCUTANEOUSLY ONCE A WEEK 15) Non-VA VIBEGRON 75MG TAB 75MG BY MOUTH ONCE DAILY ACTIVE 17 Total Medications MENTAL STATUS EXAM: Appearance: consistent w/ stated age, appropriate grooming and hygiene Motor: no tics, tremors, or abnormal movements Speech: normal rate, volume and articulation Thought process: normal rate, logical and coherent Associations: linear Thought content: denies hallucinations, delusions, or paranoia. Denies homicidal thoughts. Denies suicidal ideation, intent or plan to harm self. Insight and Judgment: both intact Cognition: alert and oriented x 4, good attention, memory grossly intact to conversational testing. Mood: euthymic, depressed - brightens appropriately with conversation. Affect: congruent with mood. LABS AND STUDIES: N/A SAFETY ASSESSMENT: No acute safety concerns. Convincingly denies any thoughts, intents, or plans to harm self or others. 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 He is service- connected for medical difficulties as well as PTSD. Latoya presents with significant symptoms of low mood following a series of health setbacks including two heart attacks which resulted in him senior living. His symptoms of low mood(denies SI/HI)fatigue, anhedonia, apathy, tearfulness and feelings of worthlessness and hopelessness. 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 He has a history of alcohol abuse (but stopped drinking amid his medical issues). In addition to symptoms of depression, Latoya also reports PTSD symptoms including an increase in intrusive traumatic ideation, hypervigilance, and feelings of guilt also coinciding with his forced senior living. He is and has an extensive social support network. He also reports some decline in memory I forget how to drive somewhere . Diagnosis: PTSD, insomnia, anxiety, and depression. PLAN: We collaboratively discussed treatment options including pharmacological interventions. Will start gently with low dosages of melatonin and sertraline to target his difficulty with sleep, depression and PTSD symptomology. Meds: Start: melatonin 1mg at bedtime, may take a second 1mg dosage by mouth if initial dosage in not effective - to target insomnia. sertraline 12.5mg by mouth daily - to target PTSD, depression, anxiety, sleep. Psychotherapy: Continue with therapy at the [facility]. Medical: Has community providers as well as a PCP here at [facility] - Latoya is interested in having his medications filled at the [facility] and was informed of steps to take to have his medications ordered through [facility]. Labs: N/A Follow-Up: 2 weeks, sooner if needed. Discussed risks and benefits of proposed medication treatments including FDA approved indications and off-label uses, as well as common and severe side effects. [place] comprehended all information discussed, had opportunity to ask questions which were answered to their satisfaction, and voluntarily and without duress agreed to trial as documented. CONTACT AND CRISIS INFO: The is aware of my contact information, including the Patient Call Center and my voicemail. We have reviewed the Crisis Hotline (988, dial #1 for line), and the [place] has been instructed to call 911 or go to the nearest ED if acutely suicidal or experiencing a mental health emergency. CONFIDENTIALITY: The limits of confidentiality have been reviewed, including with regards to risk of suicide or homicide, potential elder or child abuse/neglect, and my role as a mandated acreage reporter. CODING: Total time today was 60 minutes, providing counseling and education, and time spent reviewing the record, ordering meds, completing documentation, and coordinating care. CLINICAL REMINDERS: n/a /keeley/ JOSE LAMB, JAI- PSYCHIATRIC MENTAL HEALTH NURSE PRACTITIONER Signed: 07/20/2024 15:05 BALAJI DURAN Jul 20, 2024 08:12 AM PSYCHIATRY CONSULT : LOCAL TITLE: CONSULT REPORT/MENTAL HEALTH/PSYCHIATRY STANDARD TITLE: PSYCHIATRY CONSULT DATE OF NOTE: JUL 20, 2024@08:12 ENTRY DATE: JUL 30, 2024@08:13:04 AUTHOR: MARISABEL RAYIGNER: URGENCY: STATUS: COMPLETED Consult completed by JAI Lamb on 07/20, please see chart /keeley/ Marisabel Ray Psy.D. OPERATING ROOM ASSISTANT, CLINICAL PSYCHOLOGIST Signed: 07/30/2024 08:13 MARISABEL RAY
--- NOTE | 2024-12-01 13:39 | MHC.OFFVIS ---
Vital Signs 12/01/24 13:40 Height 5 ft 2 in Weight 163 lb BMI 29.8 BP 108/60 Blood Pressure Location Lt brachial Position Sitting Pulse 82 Pulse Source Pulse Oximeter Intake Visit Reasons: 6m follow up Allergies No Known Allergies Allergy (Verified 06/05/23 15:02) Medication List - Last Reconciled 12/01/24 by Dwayne Gerard MD aspirin (Adult Aspirin Regimen) 81 mg PO DAILY atorvastatin 80 mg PO DAILY donepezil 5 mg PO DAILY empagliflozin (Jardiance) 10 mg PO DAILY glipizide ER 5 mg PO DAILY irbesartan 150 mg PO DAILY metformin ER 750 mg PO ONCE mirabegron ER (Myrbetriq) 50 mg PO DAILY omeprazole 20 mg PO DAILY semaglutide (Ozempic) 0.25 mg subcut QWEEK HPI Comments Details: Lopez returns for follow-up. To recall, he was admitted to [facility] 2022 with chest pain. Troponins were elevated. There was conduction system disease in the EKG. High blood pressure initially but then improved. Eventually, underwent cardiac catheterization but there was no new findings and no interventions performed. Prior to that, there is a history of PCI to LAD in 2008 and PCI to circumflex in 2016. He then switched his care to [facility]. In December 2023, it seems that he has some chest pain and near-syncope and got admitted to [facility]. At that time, found to be in complete heart block. Then underwent cardiac catheterization but no significant findings. Reported as normal coronaries. Subsequently, underwent dual-chamber pacemaker implantation. Over the last few months, he denies any new complaints. He states he has generally been feeling okay. No clear-cut symptoms like angina. Nonspecific tiredness. 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 Essential hypertension Type 2 diabetes mellitus with unspecified complications Bifascicular block Atherosclerotic cardiovascular disease Surgical History (Updated 04/18/24 @ 18:58 by Dwayne Gerard MD) Pacemaker Hx of cardiac cath Family History Mother Heart problem Social History Alcohol intake: former Patient Tobacco Use Status: Former Tobacco user Review of Systems Const Denies weakness ENT Denies dizziness Card Denies chest pain, Denies chest pain with activity, Denies syncope, Denies rapid heart rate, Denies pedal edema, Denies edema, Denies leg edema, Denies lightheadedness, Denies palpitations, Denies dyspnea, Denies dyspnea on exertion and Denies orthopnea Resp Denies cough, Denies dyspnea and Denies dyspnea on exertion GI Denies hematochezia and Denies change in stool character Musc Denies abnormal gait, Denies muscle cramps, Denies muscle weakness, Denies numbness, Denies radiating pain into limb and Denies tingling Neuro Denies abnormal gait, Denies dizziness, Denies syncope, Denies numbness, Denies tingling and Denies weakness Endo Denies palpitations Physical Exam Vital Signs: Last Vital Signs Pulse 82 12/01/24 13:40 BP 108/60 12/01/24 13:40 BMI result Body Mass Index 29.8 Const General: comfortable and no acute distress Orientation/consciousness: patient oriented x3 HEENT Other: Unremarkable Head: Yes normal to inspection Neck Neck: Yes normal visual inspection Chest Chest palpation & inspection: normal inspection of the chest Resp Auscultation: clear to auscultation bilaterally Cardio Palpation: normal PMI Heart sounds: S1 normal heart sound present, S2 normal heart sound present, no gallops, no murmurs and no rubs GI Palpation (GI): Soft to palpation Back/Spine/Pelvis Other: unremarkable Skin General skin exam: no rashes or lesions noted Neuro General: patient oriented x3 Extrem General: Yes normal to inspection Psych Mental Status: mental status grossly normal Assessment & Plan Assessment & Plan (1) Atherosclerotic cardiovascular disease: Code(s): I25.10 - Atherosclerotic heart disease of [place] coronary artery without angina pectoris Category: Medical Plan: Cardiac catheterization from 04/2023- patent stents in the mid LAD and mid circumflex. Chronic 40% ostial OM2 stenosis. Minimal irregularities in the left main and RCA. Cardiac catheterization from 12/2023 at [facility]- reported normal coronaries. Continue aspirin and statins. Per records from [facility], LDL 38 mg/dL, triglycerides 45 mg/dL. (2) Complete heart block: Code(s): I44.2 - Atrioventricular block, complete Category: Medical Plan: Admitted with complete heart block to [facility] 2023. Status post permanent pacemaker. Normally functioning. Can be followed remotely. We will recheck with next visit. (3) Essential hypertension: Code(s): I10 - Essential (primary) hypertension Category: Medical Plan: Due to low blood pressure issues, off amlodipine, carvedilol, long-acting nitrates. Listed to be on Irbesartan. No changes. Coding Level of Care Code Est Pt Level 4 (06266) Diagnoses Atherosclerotic cardiovascular disease I25.10 Complete heart block I44.2 Essential hypertension I10
[2024-12-01 13:40] VITALS: BP 108/60; PULSE 82; BMI 29.8
--- OUTSIDE RECORDS SUMMARY | 2024-12-01 14:28 | XMS_ITS | Clinical Summary ---
Author Organization [employer] Address [address] [place] [address] Care Team Providers Care Apartment Maintenance Supervisor Name Role Phone Unavailable Primary Care Provider Unavailabl e Immunizations Immunization Administration Dates Next Due Influenza High-dose Quadriva lent Preservative Free 02/07/2022,03/01/2021 Influenza Quadrivalent Adjuvanted 02/04/2023 Influenza, High Dose Seasona l, Preservative Free 02/27/2018,01/16/2017,01/17/2016 Influenza, IIV3, injectable 03/02/2009 Influenza, seasonal, injecta ble, preservative free 01/21/2020,02/01/2015 Influenza, trivalent, adjuvanted 01/08/2019 Pfizer Covid-19 Vaccine 12+ 02/13/2023 Pneumococcal Conjugate PCV 13 10/24/2014 Pneumococcal Polysaccharide PPSV23 01/17/2016, Tdap 02/20/2015 Zoster, Recombinant 03/10/2019,01/08/2019 Zoster, live 11/12/2014,03/19/2014 Social History Tobacco Use Types Packs/Day Years Used Date Smoking Tobacco: Never Assessed Sex and Gender Information Value Date Recorded Sex Assigned at Male 03/18/2022 10:37 AM EDT Legal Sex Male 10:37 AM EDT Gender Identity Male 03/18/2022 10:37 AM EDT Sexual Orientation Straight 03/18/2022 10 :37 AM EDT Plan of Treatment Health Maintenance Due Date Last Done Comments Depression Screening 1950 Lipid Panel 1948 SDOH Screening 1948 Alcohol/Substance Use Screening 1960 Tobacco Screening 1960 Hepatitis C Screening 1966 RSV Patients and Patients Aged 60 years or older (1 - 1-dose 75+ series) 2023 COVID-19 Vaccine ( season) 2024 02/13/2023, 02/07/2022, 10/18/2021, Additional history exists Influenza Vaccine (#1) 2025 , 02/07/2022, 03/01/2021, Additional history exists DTaP/Tdap/Td Vaccines (2 - Td or Tdap) 02/20/2025 02/20/2015 Pneumococcal Vaccine: 50+ Years Completed 01/17/2016, 10/24/2014, 03/02/2009 Zoster Vaccines Completed 03/10/2019, 12/18, 11/12/2014, Additional history exists HIB Vaccines Aged Out No longer eligi ble based on patient's age to complete this topic HPV Vaccines Aged Out No longer eligi ble based on patient's age to complete this topic Hepatitis A Vaccines Aged Out No long er eligible based on patient's age to complete this topic Hepatitis B Vaccines Aged Out No long er eligible based on patient's age to complete this topic IPV Vaccines Aged Out No longer eligi ble based on patient's age to complete this topic Meningococcal B Vaccine Aged Out No l onger eligible based on patient's age to complete this topic Meningococcal Vaccine Aged Out No shawn yomi eligible based on patient's age to complete this topic RSV under 20 months Aged Out No longe r eligible based on patient's age to complete this topic Rotavirus Vaccines Aged Out No longer eligible based on patient's age to complete [place] [id number] [facility]
--- OUTSIDE RECORDS SUMMARY | 2024-12-01 14:28 | XMS_ITS | Clinical Summary ---
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 02/04/2020 Stage 2 chronic kidney disease 08/31/2019 Hypertensive renal disease 02/13/2017 Diarrhea 01/30/2017 Hyperlipidemia 04/25/2016 Acute non-ST elevation myocardial infarction (NS BRIAN) 02/27/2009 Social History Tobacco Use Types Packs/Day Years Used Date Smoking Tobacco: Never Assessed Sex and Gender Information Value Date Recorded Sex Assigned at Not on file Legal Sex Male 4:40 PM EDT Gender Identity Not on file Sexual Orientation Not on file Last Filed Vital Signs Vital Sign Reading Time Taken Comments Blood Pressure 162/71 02/25/2022 11:00 PM EDT Pulse 58 02/25/2022 9:00 PM EDT Temperature 36.6 C (97.8 F) 02/25/2022 4:54 PM EDT Respiratory Rate 16 02/25/2022 11:00 PM EDT Oxygen Saturation 100% 02/25/2022 11:00 PM EDT Inhaled Oxygen Concentration - - Weight 77.1 kg (170 lb) 02/25/2022 4:54 PM EDT Height 165.1 cm (5' 5 ) 02/25/2022 4:54 PM EDT Body Mass Index 28.29 02/25/2022 4:54 PM EDT Plan of Treatment Health Maintenance Due Date Last Done Comments Hepatitis C Screening 1950 Ophthalmology Exam 1958 Fall Risk Screening 2013 Urine Protein Screening 02/03/2021 02/04/2020, 02/13 RSV 60+ (1 - 1-dose 75+ series) 2023 Medicare Annual Wellness Visit 07/10/2023 07/10/2022, 07/02/2021, 04/28/2020, Additional history exists COVID-19 Vaccine ( season) 2024 02/13/2023, 02/07/2022, 10/18/2021, Additional history exists Influenza Vaccine (#1) 2025 , 02/07/2022, 03/01/2021, Additional history exists Tdap and Td Vaccines Adult 02/20/2025 02/20/2015 Colonoscopy Discontinued 05/08/2015 Colorectal Cancer Screening Discontinued Pneumococcal Vaccine: 50+ Years Completed 01/17/2016, 10/24/2014, 03/02/2009 Zoster Vaccines Completed 03/10/2019, 02/17, 01/08/2019, Additional history exists CT Colonography Discontinued FIT-DNA Discontinued FIT Discontinued FOBT Discontinued HIB Vaccines Aged Out No longer eligi ble based on patient's age to complete this topic HPV Vaccines (No Doses Required) Completed Hepatitis A Vaccines Aged Out No long er eligible based on patient's age to complete this topic IPV Vaccines Aged Out No longer eligi ble based on patient's age to complete this topic Lipid Panel Discontinued Meningococcal Vaccine Aged Out No shawn yomi eligible based on patient's age to complete this topic RSV <20 Months Aged Out No longer balbina gible based on patient's age to complete this topic Sigmoidoscopy Discontinued Insurance [employer] [place] [address] [place] [id number] Care Teams Office Administrator Relationship Specialty Start Date End Date Hebert Bernstein MD [address] [address] PCP - General Internal Medicine 02/25/22
--- OUTSIDE RECORDS SUMMARY | 2024-12-01 14:28 | XMS_ITS | Data Portability ---
Author Organization [facility], Main Office Address [address] [place] [id number] Care Team Providers Care Cost Consultant Name Role Phone SHIRLEY BERNSTEIN Primary Care Provider BRENDA REILLY Social Worker Health Services [facility] Orthopedic Surgeon [facility] Urologist SHARLA MONTANO [employer] E[employer] DOMONIQUE MCNAMARA Referring Provider JOSTIN HUERTA Neurologist MARICHUY GUERRERO Social Worker Health Services LINN TURCIOS Referring Provider Assessment Encounter Date Assessment Date Assessment LastModified by Organization Details LastModified Time 10/13/2024 10/13/2024 Total time spent 45 minutes coordinating care, reviewing ER notes and recent labs. [facility] [place] coordinator contacted during visit to discuss pt case and initiated referral. Not available 10/13/2024 15:04:38 Plan of Treatment Reminders Order Date Submit Date Provider Last Modified By Organization Details Last Modified Time Details Appointments FOLLOW UP 2024 01:30P Summer guerrero MD Not available Not available Not available Lab hemoglobi n A1C, fingersti ck 2024 025 LAURA In-Office Order, Internal Use Only DO Not Attach Compendium DO Not Attach Compendium, Do Not Delete/merge, [id number] 10/13/2024 11:24:11 hemoglobi n A1C, fingersti ck 2023 024 In-Office Order, Internal Use Only DO Not Attach Compendium DO Not Attach Compendium, Do Not Delete/merge, [id number] 04/02/2024 10:58:20 Referral diabetic ophthalmo logy referral 2024 025 dee Not available 10/14/2024 08:30:15 medical case worker/c are coordinat or referral - Coordinat e care between PCP team , other providers , [facility]. Dx: dementia, coronary atheroscl erosis, syncope, hypertens ion, diabetes. 2024 025 dee Not available 10/14/2024 08:30:34 gastroent erologist referral - Needs colon cancer screening 2024 025 LAURA Reilly MD, [address] [facility], [address], [place], [address], 10/26/2024 10:18:49 orthopedi c surgeon referral - Bilateral knee pain and pain with walking. Probable OA 2024 025 [email or web address] [place] Orthopedic Surgeon, [address], [address], [place], [address], 07/29/2024 09:02:38 Procedures colonosco py screening (PROC) 2024 025 dee Reilly MD, [address], [address], [place], [address], 07/22/2024 10:40:07 Surgeries None recorded. Imaging None recorded. Medication Orders fluticaso ne propionat e 50 mcg/actua tion nasal spray,baltazar pension 2024 025 LAURA [facility]/Pharmacy #[id number], [address], [place], [address], 07/21/2024 13:47:24 fluticaso ne propionat e 50 mcg/actua tion nasal spray,baltazar pension 2023 024 [email or web address] [facility]/Pharmacy #[id number], [address] [place], [address], 09/15/2024 11:21:28 Patient TargetsNo targets recorded. Patient Instructions Encounter Date Encounter Id Patient Instructions Last Modified By Organization Details Last Modified Time 01/14/2024 [id number] medicines to avoid with kidney disease: care instructions [email or web address] Not available 01/22/2024 15:26:23 eustachian tube problems: care instructions acennerazzo Not available 01/14/2024 10:47:21 bradycardia: care instructions acennerazzo Not available 01/14/2024 12:14:04 Medications (OTC, herbal therapies, supplements) reviewed and reconciled with patient and or caregiver, including potential side effects, drug interactions, instructions, and the consequences of not taking medication. Reviewed potential barriers to medication adherence, such as side effects from medication or cost of medication. Not available 01/14/2024 10:02:17 04/02/2024 [id number] medicines to avoid with kidney disease: care instructions Not available 04/02/2024 10:58:20 Medications (OTC, herbal therapies, supplements) reviewed and reconciled with patient and or caregiver, including potential side effects, drug interactions, instructions, and the consequences of not taking medication. Reviewed potential barriers to medication adherence, such as side effects from medication or cost of medication. Not available 04/02/2024 09:34:21 07/21/2024 [id number] allergies: care instructions acennerazzo Not available 07/21/2024 13:47:23 dementia: care instructions acennerazzo Not available 07/23/2024 13:47:04 helping A person with dementia: care instructions acennerazzo Not available 07/23/2024 13:47:04 preventing falls: care instructions acennerazzo Not available 07/21/2024 13:37:46 well visit, over 65: care instructions acennerazzo Not available 07/21/2024 13:37:45 high cholesterol: care instructions acennerazzo Not available 07/23/2024 13:47:04 medicines to avoid with kidney disease: care instructions acennerazzo Not available 07/23/2024 13:47:04 learning about colon cancer acennerazzo Not available 07/21/2024 13:48:56 benign prostatic hyperplasia: care instructions acennerazzo Not available 07/23/2024 13:47:04 09/10/2024 [id number] During [facility] f/u call, all current and discharge medications (OTC, herbal therapies, supplements) reviewed and reconciled with patient, including potential side effects, drug interactions, instructions, and the consequences of not taking medication. Reviewed potential barriers to medication adherence, such as side effects from medication or cost of medication. blaine Not available 09/10/2024 10:52:10 10/13/2024 [id number] dementia: care instructions Not available 10/13/2024 15:03:40 helping A person with dementia: care instructions Not available 10/13/2024 15:03:40 learning about type 2 diabetes Not available 10/13/2024 11:35:21 type 2 diabetes: care instructions Not available 10/13/2024 11:35:21 high blood pressure: care instructions Not available 10/13/2024 11:35:21 learning about high blood pressure Not available 10/13/2024 11:35:21 Medications (OTC, herbal therapies, supplements) reviewed and reconciled with patient and or caregiver, including potential side effects, drug interactions, instructions, and the consequences of not taking medication. Reviewed potential barriers to medication adherence, such as side effects from medication or cost of medication. Not available 10/13/2024 11:06:51 Reason for Referral Orthopedic Surgeon Referral for Pain of bilateral knee joints Bilateral knee pain and pain with walking. Probable OA Referring Physician: Shirley [facility], Encounter Date: 07/21/2024 Social Worker Health Services Referral for Screening for malignant neoplasm of colon Needs colon cancer screening Referring Physician: Shirley Bernstein [facility], Encounter Date: 07/21/2024 Diabetic Ophthalmology Refer ral for Type 2 diabetes mellitus Referring Physician: Yessenia Obrien, Internal Medicine, Encounter Date: 10/13/2024 Human Resources Benefits Specialist/care Coordinato r Referral for Essential hypertension Coordinate care between PCP team , other providers , [facility]. Dx: dementia, coronary atherosclerosis, syncope, hypertension, diabetes. Referring Physician: Yessenia Obrien, Internal Medicine, Encounter Date: 10/13/2024 Results Created Date Observation Date Name Description Value Unit Range Abnormal Flag Note LastModifiedBy Organization Detail LastModifiedTime 12/31/19 24 12/31/2023 hemog lobin A1C, finge rstic k A1C 7.3 % 4-6 abnormal Not Available In-Office Order Internal Use Only DO Not Attach Compendium DO Not Attach Compendium, Do Not Delete/merge, [id number] 12/31/2023 10:08:45 01/30/2001/30/2024 COMP. METAB OLIC PANEL (14) calcium 9.5 mg/dL 8.6-10 .2 normal Not Available [facility] [address] [place], [address], 01/31/2024 16:07:57 01/30/20 24 01/30/2024 COMP. METAB OLIC PANEL (14) protein, total 6.5 g/dL 6.0-8. 5 normal Not Available [facility] [address] [place], [address], 01/31/2024 16:07:57 01/30/20 24 01/30/2024 COMP. METAB OLIC PANEL (14) albumin 4.3 g/dL 3.8-4. 8 normal Not Available [facility] ([facility]) [address] [place], [address], 01/31/2024 16:07:57 01/30/20 24 01/30/2024 COMP. METAB OLIC PANEL (14) globulin, total 2.2 g/dL 1.5-4. 5 Not Available [facility] [address] [place], [address], 01/31/2024 16:07:57 01/30/20 24 01/30/2024 COMP. METAB OLIC PANEL (14) bilirubin, total 0.5 mg/dL 0.0-1. 2 normal Not Available [facility] [address] [place], [address], 01/31/2024 16:07:57 01/30/20 24 01/30/2024 COMP. METAB OLIC PANEL (14) alkaline phosphatase 85 IU/L 44-121 normal Not Available [facility] [address] [place], [address], 01/31/2024 16:07:57 01/30/20 24 01/30/2024 COMP. METAB OLIC PANEL (14) AST (SGOT) 19 IU/L 0-40 normal Not Available [facility] [address] [place], [address], 01/31/2024 16:07:57 01/30/20 24 01/30/2024 COMP. METAB OLIC PANEL (14) ALT (SGPT) 17 IU/L 0-44 normal Not Available [facility] [address] [place], [address], 01/31/2024 16:07:57 01/30/20 24 01/31/2024 COMP. METAB OLIC PANEL (14) glucose 160 mg/dL 70-99 above high normal Not Available [facility] [address] [place], [address], 01/31/2024 16:07:57 01/30/20 24 01/31/2024 COMP. METAB OLIC PANEL (14) BUN 14 mg/dL 8-27 normal Not Available [facility] [address] [place], [address], 01/31/2024 16:07:57 01/30/20 24 01/31/2024 COMP. METAB OLIC PANEL (14) creatinine 1.12 mg/dL 0.76-1 .27 normal Not Available [facility] [address] [place], [address], 01/31/2024 16:07:57 01/30/20 24 01/31/2024 COMP. METAB OLIC PANEL (14) eGFR 69 mL/mi n/1.7 3 >59 normal Not Available [facility] [address] [place], [address], 01/31/2024 16:07:57 01/30/20 24 01/31/2024 COMP. METAB OLIC PANEL (14) BUN/creatini ne ratio 13 10-24 normal Not Available [facility] [address] [place], [address], 01/31/2024 16:07:57 01/30/20 24 01/31/2024 COMP. METAB OLIC PANEL (14) sodium 141 mmol/ L 134-14 4 normal Not Available [facility] [address] [place], [address], 01/31/2024 16:07:57 01/30/20 24 01/31/2024 COMP. METAB OLIC PANEL (14) potassium 4.3 mmol/ L 3.5-5. 2 normal Not Available [facility] ([facility]) [address] [place], [address], 01/31/2024 16:07:57 01/30/20 24 01/31/2024 COMP. METAB OLIC PANEL (14) chloride 105 mmol/ L 96-106 normal Not Available [facility] ([facility]) [address] [place], [address], 01/31/2024 16:07:57 01/30/20 24 01/31/2024 COMP. METAB OLIC PANEL (14) carbon dioxide, total 24 mmol/ L 20-29 normal Not Available [facility] ([facility]) [address] [facility], [place], [address], 01/31/2024 16:07:57 01/30/20 24 01/31/2024 LIPID PANEL cholesterol, total 107 mg/dL 100-19 9 normal Not Available [facility] [address] [facility], [place], [address], 01/31/2024 16:07:58 01/30/20 24 01/31/2024 LIPID PANEL triglyceride s 70 mg/dL 0-149 normal Not Available [facility] [address] [place], [address], 01/31/2024 16:07:58 01/30/20 24 01/31/2024 LIPID PANEL HDL cholesterol 51 mg/dL >39 normal Not Available [facility] [address] [place], [address], 01/31/2024 16:07:58 01/30/20 24 01/31/2024 LIPID PANEL VLDL cholesterol mavis 15 mg/dL 5-40 Not Available [facility] [address] [place], [address], 01/31/2024 16:07:58 01/30/20 24 01/31/2024 LIPID PANEL LDL chol calc ([facility]) 41 mg/dL 0-99 Not Available [facility] [address] [place], [address], 01/31/2024 16:07:58 01/30/20 24 01/31/2024 LIPID PANEL LDL calc comment: [employer]RAFTER [employer]IL Not Available [facility] [address] [place], [address], 01/31/2024 16:07:58 01/30/20 24 01/31/2024 ALBUM IN/CR EAT RATIO , RANDO M UR creatinine, urine 142.7 mg/dL not estab. normal Not Available [facility] [address] [place], [address], 01/31/2024 16:07:58 01/30/20 24 01/31/2024 ALBUM IN/CR EAT RATIO , ALKAO M UR albumin, urine 5.9 ug/mL not estab. Not Available [facility] [address] [facility], [place], [address], 01/31/2024 16:07:58 01/30/20 24 01/31/2024 ALBUM IN/CR EAT RATIO , RANDO M UR alb/creat ratio 4 mg/g_ creat 0-29 Chaya l: 0 - 29 Moder ately incre ased: 30 - 300 Sever gardenia incre ased: >300 Not Available [facility] [address] [facility], [place], [address], 01/31/2024 16:07:58 04/02/20 24 04/02/2024 hemog lobin A1C, finge rstic k A1C 7.0 % 4-6 abnormal Not Available In-Office Order Internal Use Only DO Not Attach Compendium DO Not Attach Compendium, Do Not Delete/merge, [id number] 04/02/2024 09:34:34 10/14/1910/13/2024 hemog lobin A1C, finge rstic k A1C 7.2 % 4-6 abnormal Not Available In-Office Order Internal Use Only DO Not Attach Compendium DO Not Attach Compendium, Do Not Delete/merge, [id number] 10/13/2024 11:02:40 10/23/1910/22/2024 TISSU E EXAM .note See Note Origi nal Order ing Provi wesley: BRENDA E SLITZ [place] [facility] - [address], [place], [place] [address] Not Available [facility] [address] [place], [address], 10/25/2024 09:16:15 10/23/19 25 10/22/2024 TISSU E EXAM final diagnosis A. Colon, random biopsi es: - Colon ic mucos a with mild super ficia l lymph oplas macyt osis and rare angel luis a propr ia neutr ophil s, yolanda tible with focal , minim ally activ e (non- speci fic) colit is. B. Small Intes eran, Duode num, biops ies: - Duode nal mucos a with prese rved villi and no speci fic patho logic laguna es. - Negat gonzalo for incre ased intra epith elial lymph ocyte s. C. Gastr ic, Antru m, biops ies: - Gastr ic antra l mucos a with activ e chron ic gastr itis. - Helic obact er pylor i organ isms are morph ologi mikey ident ified . Elect daniel trinidad emerita d by Maggi Lima MD on 025 at 9:14 AM Not Available [facility] [address] [facility], [place], [address], 10/25/2024 09:16:15 10/23/19 25 10/22/2024 TISSU E EXAM gross description A. Colon, random biopsi es: Label ed rand om colon bi . Recei manjeet in forma artem are eight soft to rubbe ry, denton-p ink tissu e fragm ents, rangi ng from 0.2 cm to 1.1 cm, in great est diame ters, which are wrapp ed in paper and submi tted in toto in one casse tte, eight piece s, multi ple level s. B. Small Intes eran, Duode num, biops ies: Label ed duod enum biops ies . Recei manjeet in forma artem are five soft to rubbe ry, velve ty, denton-p ink tissu e fragm ents rangi ng from 0.2 cm to 0.5 cm, in great est diame ters, which are wrapp ed in paper and submi tted in toto in one casse tte, five piece s, multi ple level s. C. Gastr ic, Antru m, biops ies: Label ed berny muriel, ant biops ies . Recei manjeet in forma artem are four soft to rubbe ry, denton-p ink to red tissu e fragm ents rangi ng from 0.2 cm x 0.6 cm, in great est diame ters, which are wrapp ed in paper and submi tted in toto in one casse tte, four piece s, multi ple level s. dvb/D G Not Available [facility] [address] [place], [address], 10/25/2024 09:16:15 10/23/19 25 10/22/2024 TISSU E EXAM disclaimer Unles s other ta speci fied, all tissu e is 10% NB forma artem fixed and paraf fin embed ded. Not Available [facility] [address] [place], [address], 10/25/2024 09:16:15 10/23/19 25 colon oscop y scree serina (PROC ) No observ ation record ed. [email or web address] Brenda Reilly MD [address] [facility] [address], [place], [address], 10/22/2024 11:47:50 10/23/19 25 EGD No observ ation record ed. [email or web address] [facility] [address] [place], [address], 10/22/2024 11:48:05 Result Notes None recorded. Problems Name Problem SNOMED Code Status Onset Date Resolution Date Notes Provider Name and Address Organization Details Recorded Time Type 2 diabetes mellitus 09052253 Completed 200109/12/2016 Yessenia Obrien PA-C [address] [facility] [address], [place], [address] , [facility] 5 11:03:14 Coronary arterios clerosis 07051035 Active had stent placed in RCA JESS Cortes, [facility] 5 11:20:48 Hypercho lesterol emia 34530580 Completed 04/25/2016 on meds Shirley Bernstein MD [address], [place], [address] , [facility] 6 12:17:11 Benign prostati c hyperpla carly 687494437 Active followed by Dr Julio Cesar martin Not Available [facility] 3 11:10:16 Pulmonar y congesti on 24119868 Active Not Available [facility] 3 11:10:17 Abdomina l bloating 022987520 Completed 04/18/2016 DINESH Bennett, [facility] 6 13:50:52 Tick bite without infectio n Completed 05/29/2016 Tammy dunn, [facility] 7 09:46:40 Pneumoni a 767111762 Completed 04/18/2016 DINESH Bennett, [facility] 6 13:50:55 Wheezing 58872354 Completed 04/18/2016 DNIESH Bennett, [facility] 6 13:51:19 Gout 60698634 Active treats each episode as it occurs Not Available [facility] 3 11:10:17 Obesity 696307606 Active Not Available [facility] 3 11:10:16 Uncontro lled type 2 diabetes mellitus 507335649 Completed 09/12/2016 Shirley Bernstein MD [address], [place], [address] , [facility] 2 17:44:24 Viral disease 13656921 Completed 04/18/2016 DINESH Bennett, [facility] 6 13:50:59 Microalb uminuria 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 Not Available [facility] 3 11:10:16 Diarrhea 27988437 Active 2016 Possibly related to diabetes ; seen by Dr Reilly and started on Questran . Not Available [facility] 3 11:10:17 Chronic kidney disease stage 1 964200147 Completed 201608/31/2019 Yessenia Obrien PA-C [address], [place], [address] , [facility] 0 14:35:38 Hyperten sive renal disease 18554917 Active 2016 Not Available [facility] 3 11:10:16 Nasal congesti on 78071371 Active 2017 Not Available [facility] 3 11:10:17 Pain of left shoulder joint 04370914556 604925 Active 2018 Injected at [facility] 08/31/18 Not Available [facility] 3 11:10:16 Allergic conjunct ivitis 993967092 Completed 201807/30/2021 Removal Reason: resolved Shirley Bernstein MD [address], [place], [address] , [facility] 2 17:43:34 Diabetes mellitus 21595452 Completed 09/10/2019 Yessenia Obrien PA-C [address], [place], [address] , [facility] 0 11:12:29 Chronic kidney disease stage 2 330748058 Active 2019 Not Available [facility] 3 11:10:17 Trochant linn bursitis of left hip 58395372747 9103 Active 2019 Injected at [facility] Not Available [facility] 3 11:10:16 Iliotibi al band friction syndrome of left knee 95534165478 9102 Active 2019 Injected at [facility] Not Available [facility] 3 11:10:16 Bilatera l pseudoph cora 34626792816 985691 Completed 202009/24/2020 Shirley Bernstein MD [address], [place], [address] , [facility] 1 13:19:43 Artifici al lens present in right eye 16473770351 423764 Active 2020 Not Available [facility] 3 11:10:16 Right bundle branch block 90374856 Active 2020 Not Available [facility] 3 11:10:17 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 Evaluate d at [facility] December 2022. Yessenia Obrien PA-C [address], [place], [address] , [facility] 5 15:03:34 Traumati c subdural hematoma 369094672 Active 2022 From a fall. Shirley Bernstein MD [address], [address] , [facility] 3 17:41:46 Urge incontin ence of urine 78023719 Active 2022 On meds and followed by urology Shirley Bernstein MD [address], [place], [address] , [facility] 3 08:13:22 Alzheime r's disease 60522474 Active 2023 mixed vascular dementia Yessenia Obrien PA-C [address] [facility] [address], [place], [address] , [facility] 4 15:59:03 Hypothyr oidism 35746420 Active 2023 Yessenia Obrien PA-C [address] [facility] [address], [place], [address] , [facility] 4 15:59:59 Drug-ind uced constipa tion 29153115 Active 2023 Yessenia Obrien PA-C [address], [place], [address] , [facility] 4 16:33:08 Myocardi al infarcti on 84983156 Active 2021 Angelita Schaefer CPPM null, [facility] 4 10:59:13 Type 2 diabetes mellitus 20165338 Active 2024 Ele Cloud LPN null, [facility] 5 11:20:48 Essentia l hyperten florinda 99942769 Active 2024 Yessenia Obrien PA-C [address] [facility] [address], [place], [address] , [facility] 5 11:03:15 Detected by measuresummer ent 985450594 Active 2024 Shirley Bernstein MD [address] [facility] [address], [place], [address] , [facility] 5 10:53:01 Notes:Some problems listed i n Document: #[id number] could not be added to this patient's chart. Please review this document and add these problems to the patient's chart manually as needed. Problem Notes None recorded. Procedures Surgical History Date Name Laterality Status Provider Name and Address Organization Details Recorded Time 10/22 Colonoscopy completed Kanikanicola Iqbal [facility] 5 09:10:05 10/22 [facility] 5 09:10:35 02/02 diabetic retinopathy screening completed Pippa Elder [facility] 4 12:33:00 12/20 Pmkr, single, rate-resp completed Shirley Bernstein MD [address], [place], [address] , [facility] 4 08:02:55 07/15 Advanced Care Planning completed Shirley Bernstein MD [address], [place], [address] , [facility] 4 09:58:59 07/15 Diabetic Foot Exam (Monofilament) completed Shirley Bernstein MD [address], [place] [place], [phone] , [facility] 4 09:58:53 05/13 angiography of coronary artery completed Pippa Elder [facility] 3 13:48:48 02/25 diabetic retinopathy screening completed Pippa Elder [facility] 3 09:05:04 12/31 Diabetic Foot Exam (Monofilament) completed Shirley Bernstein MD [address], [place], [phone] , [facility] 2 13:19:40 06/26 Diabetic Foot Exam (Monofilament) completed Cheryl Graves MA [facility] 2 14:21:40 09/27 Diabetic Foot Exam (Monofilament) completed Cheryl Graves MA [facility] 1 09:41:59 04/28 Diabetic Foot Exam (Monofilament) completed Shirley Bernstein MD [address] [facility] [address], [place], [phone] , [facility] 0 12:53:41 04/28 Six-Item Cognitive Test completed Jemma Pedro MA [facility] 0 13:26:28 03/15 injection completed Kanika Iqbal [facility] 0 14:07:05 08/30 Diabetic Foot Exam (Monofilament) completed Aide Hester [facility] 0 13:06:56 07/26 Diabetic Foot Exam (Monofilament) completed Kevin Stout [facility] 0 09:53:31 04/27 Mini-Cog Test completed Amy Mallory MA [facility] 9 10:50:17 04/27 Diabetic Foot Exam (Monofilament) completed Shirley Bernstein MD [address] [facility] [address], [place], [phone] , [facility] 9 11:22:34 06/01 Diabetic Foot Exam (Monofilament) completed Kevin Stout [facility] 9 09:10:03 02/27 Diabetic Foot Exam (Monofilament) completed Chasidy Mijares [facility] 8 11:05:29 12/15 Diabetic Foot Exam (Monofilament) completed Shirley Bernstein MD [address] [facility] [address], [place], [phone] , [facility] 8 14:24:49 09/10 Diabetic Foot Exam (Monofilament) completed Shirley Bernstein MD [address] [facility] [address], [place], [phone] , [facility] 8 12:12:50 07/01 Unlisted px cardiac surgery completed Michael Roa [facility] 7 13:58:16 07/19 Fall Risk Assessment completed Kevin Stout [facility] 5 13:16:18 07/19 Mini-Cog Test completed Kevinayo Barajaselvis [facility] 5 13:16:18 02/28 Cardiac Surgery completed Kevin Hitchcockkathyaelvis [facility] 5 13:16:18 Imaging Results None recorded. Procedure Notes None recorded. Medical Equipment None Reported. Allergies No known drug allergies Medications Name Sig Start Date Stop Date Status Note LastModified by Organization Details LastModified Time hydrocort isone 2.5 % crea active Not Available Not Available Not Available atorvasta tin calcium 40 mg tabs active Not Available Not Available Not Available freestyle leonid litefrees tyle lite test strips active Not Available Not Available Not Available metoprolo l succinate er 25 mg tb24 active Not Available Not Available Not Available fluzone high-dose pf 1654-0918 .5 ml jonas active Not Available Not Available Not Available amoxicill in/clavul anate potassium 875-125 mg tabs active Not Available Not Available Not Available peg-3350/ nacl/na bicarbona te/kcl 420 gm solr active Not Available Not Available Not Available virtussin a/c 100-10 mg/5ml soln active Not Available Not Available Not Available humalog kwikpen 100 unit/ml sopn active Not Available Not Available Not Available doxycycli ne hyclate 100 mg tabs active Not Available Not Available Not Available indometha destini 25 mg caps active Not Available Not Available Not Available zostavax 13993 unt/0.65m l solr active Not Available Not Available Not Available freestyle leonid lite active Not Available Not Available Not Available levitra 20 mg tabs active Not Available Not Available Not Available proair hfa 108 (90 base) mcg/act aers active Not Available Not Available Not Available irbesarta n 150 mg tabs active Not Available Not Available Not Available amoxicill in 500 mg capsule active Not Available Not Available Not Available Miralax 17 gram/dose oral powder Take 17 g every day by oral route for 30 days. 2023 active Not Available Not Available Not Avai lable atorvasta tin 40 mg tablet Take 1 tablet every day by oral route at bedtime for 90 days. 2014 active Not Available Not Available Not Avai lable metformin 500 mg tablet Take 1 tablet every day by oral route at bedtime for 90 days. 04/24 completed Not Available Not Available Not Available ivermecti n 3 mg tablet 04/28 completed Not Available Not Available Not Available atorvasta tin 80 mg tablet TAKE 1 TABLET BY MOUTH EVERYDAY AT BEDTIME active Not Available Not Available No t Available carvedilo l 25 mg tablet Take 1 tablet twice a day by oral route for 90 days. 07/13 completed dizzines s and bradycar bill Not Available Not Available Not Available azelastin e 0.05 % eye drops Instill 1 drop twice a day by ophthalm ic route. 07/17 completed Not Available Not Available Not Available carvedilo l 6.25 mg tablet Take 1 tablet twice a day by oral route for 90 days. 12/04 completed hypotens ion Not Available Not Available Not Available carvedilo l 12.5 mg tablet Take 1 tablet twice a day by oral route for 90 days. 06/19 completed Not Available Not Available Not Available donepezil 5 mg tablet TAKE 1 TABLET BY MOUTH EVERY DAY NEEDED FOR DEMENTIA active Not Available Not Available No t Available polyethyl cristiana glycol 3350 17 gram oral powder packet Take 17 g every day by oral route as needed. 09/16 completed Not Available Not Available Not Available azithromy destini 250 mg tablet 09/12 completed Not Available Not Available Not Available aspirin 325 mg tablet Take 1 tablet every day by oral route. 07/06 completed Not Available Not Available Not Available ofloxacin 0.3 % eye drops 06/12 completed Not Available Not Available Not Available benzonata te 200 mg capsule TAKE 1 CAPSULE BY MOUTH THREE TIMES DAILY FOR 10 DAYS NEEDED active Not Available Not Available No t Available metoprolo l succinate ER 50 mg tablet,ex tended release 24 hr TAKE 1 TABLET BY MOUTH TWICE DAILY 09/12 completed Not Available Not Available Not Available levetirac etam 500 mg tablet TAKE 1 TABLET BY MOUTH TWICE A DAY FOR 30 DAYS active Not Available Not Available No t Available tolterodi ne ER 4 mg capsule,e xtended release 24 hr TAKE 1 CAPSULE BY MOUTH EVERY MORNING 12/04 completed Not Available Not Available Not Available senna 8.6 mg tablet Take 2 tablets every day by oral route as needed. 09/16 completed Not Available Not Available Not Available glipizide ER 10 mg tablet, extended release 24 hr TAKE 1 TABLET BY MOUTH EVERY DAY 02/08 completed Not Available Not Available Not Available donepezil 10 mg tablet TAKE 1 TABLET BY MOUTH EVERY DAY AT BEDTIME FOR 90 DAYS ORALLY ONCE A DAY active Not Available Not Available No t Available meloxicam 15 mg tablet Take 1 tablet every day by oral route. 2024 active Not Available Not Available Not Avai lable ondansetr on HCl 4 mg tablet 06/18 completed Not Available Not Available Not Available glipizide 10 mg tablet Take 1 tablet every day by oral route. 06/04 completed Not Available Not Available Not Available isosorbid e mononitra te ER 30 mg tablet,ex tended release 24 hr TAKE 1 TABLET BY MOUTH EVERY DAY 2024 active Not Available Not Available Not Avai lable glipizide ER 5 mg tablet, extended release 24 hr TAKE 1 TABLET BY MOUTH EVERY DAY 04/14 completed Not Available Not Available Not Available Debrox 6.5 % ear drops INSTILL 5 DROPS INTO AFFECTED EAR(S) BY OTIC ROUTE 2 TIMES PER DAY 07/15 completed Not Available Not Available Not Available chlorthal idone 25 mg tablet Take 1 tablet every day by oral route for 90 days. 09/12 completed Not Available Not Available Not Available amlodipin e 5 mg tablet Take 1 tablet every day by oral route for 90 days. 12/04 completed hypotent ion Not Available Not Available Not Available simvastat in 40 mg tablet active Not Available Not Available Not Available ketorolac 0.5 % eye drops INSTILL 1 DROP INTO AFFECTED EYES FOUR TIMES DAILY 06/23 completed Not Available Not Available Not Available tamsulosi n 0.4 mg capsule Take 1 capsule every day by oral route as needed for 30 days. 07/31 completed Not Available Not Available Not Available amlodipin e 10 mg tablet TAKE 1 TABLET BY MOUTH EVERY DAY active Not Available Not Available No t Available benzonata te 100 mg capsule Take 1 capsule 3 times a day by oral route for 15 days. active Not Available Not Available No t Available glipizide ER 2.5 mg tablet, extended release 24 hr TAKE 1 TABLET BY MOUTH EVERY DAY 05/16 completed Not Available Not Available Not Available [place] 1,000 mcg intra-ure thral supposito ry Take 1 supposit ory every day by urethral route as needed for 1 day. 06/30 completed Not Available Not Available Not Available indometha destini 25 mg capsule TAKE 1 CAPSULE BY MOUTH THREE TIMES DAILY NEEDED 06/30 completed Not Available Not Available Not Available indometha destini 50 mg capsule TAKE 1 CAPSULE BY MOUTH THREE TIMES A DAY NEEDED FOR 5 DAYS 09/16 completed Not Available Not Available Not Available hydrochlo rothiazid e 12.5 mg capsule TAKE 1 CAPSULE BY MOUTH DAILY active Not Available Not Available No t Available nitroglyc lisbeth 0.4 mg sublingua l tablet PLACE 1 TABLET UNDER TONGUE EVERY 5 MINUTES X 3 THEN CALL 911 2023 active Not Available Not Available Not Avai lable sertralin e 25 mg tablet TAKE 1 TABLET BY MOUTH EVERY DAY 05/16 completed Not Available Not Available Not Available omeprazol e 20 mg capsule,d elayed release TAKE 1 CAPSULE BY MOUTH EVERY DAY 01/28 completed Not Available Not Available Not Available mupirocin 2 % topical ointment APPLY A SMALL AMOUNT TO THE AFFECTED AREA BY TOPICAL ROUTE 3 TIMES PER DAY 12/30 completed Not Available Not Available Not Available metoprolo l succinate ER 25 mg tablet,ex tended release 24 hr TAKE 1 TABLET BY MOUTH TWICE DAILY 07/11 completed Not Available Not Available Not Available irbesarta n 150 mg tablet TAKE 1 TABLET BY MOUTH EVERY DAY active Not Available Not Available No t Available fluticaso ne propionat e 50 mcg/actua tion nasal spray,baltazar pension SHAKE LIQUID AND USE 1 SPRAY IN EACH NOSTRIL DAILY active Not Available Not Available No t Available metformin ER 500 mg tablet,ex tended release 24 hr TAKE 2 TABLETS BY MOUTH EVERY DAY 04/24 completed Not Available Not Available Not Available clotrimaz ole 1 % topical cream APPLY TOPICALL Y TO THE AFFECTED AREA AND SURROUND ING AREA TWICE DAILY EVERY MORNING AND EVERY EVENING 07/17 completed Not Available Not Available Not Available sertralin e 50 mg tablet Take 1 tablet every day by oral route. active Not Available Not Available No t Available doxycycli ne hyclate 100 mg tablet Take 2 tablets every day by oral route as directed for 1 day. 2014 active Not Available Not Available Not Avai lable dicyclomi ne 10 mg capsule Take 1 capsule twice a day by oral route. 07/26 completed Not Available Not Available Not Available irbesarta n 300 mg tablet TAKE 1 TABLET BY MOUTH EVERY DAY active Not Available Not Available No t Available glipizide 5 mg tablet TAKE 1 TABLET BY MOUTH EVERY DAY active Not Available Not Available No t Available amoxicill in 875 mg-potass ium clavulana te 125 mg tablet Take 1 tablet every 12 hours by oral route for 10 days. 2014 active Not Available Not Available Not Avai lable neomycin 3.5 mg/g-poly myxin B 10,000 unit/g-de xameth 0.1 % eye oint APPLY 1/4 A THIN LAYER LEFT EYE FOUR TIMES A DAY NEEDED FOR PAIN AFTER INJECTIO N active Not Available Not Available No t Available Laxative (bisacody l) 5 mg tablet,de layed release TAKE 2 TABLETS BY MOUTH RIGHT BEFORE BEGINNIN G BOWEL PREP. SEE INSTRUCT IONS PROVIDED BY THE OFFICE. active Not Available Not Available No t Available metformin ER 750 mg tablet,ex tended release 24 hr TAKE 1 TABLET BY MOUTH TWICE A DAY 2024 active Not Available Not Available Not Avai lable ketorolac 0.4 % eye drops INSTILL 1 DROP IN BOTH EYES TWICE DAILY DIRECTED 07/17 completed Not Available Not Available Not Available Levitra 20 mg tablet active Not Available Not Available Not Available alfuzosin ER 10 mg tablet,ex tended release 24 hr TAKE 1 TABLET EVERY DAY BY ORAL ROUTE FOR 90 DAYS, FOR ENLARGED PROSTATE . active Not Available Not Available No t Available memantine 5 mg tablet TAKE 1 TABLET BY MOUTH TWICE A DAY FOR 90 DAYS active Not Available Not Available No t Available chlorhexi dine gluconate 0.12 % mouthwash SWISH 15ML IN MOUTH FOR 30 SEC THEN SPIT OUT TWICE DAILY FOR 1 WEEK 11/11 completed Not Available Not Available Not Available Lantus U-100 Insulin 15 in am and 17 at bedtime 06/01 completed Not Available Not Available Not Available ProAir HFA 90 mcg/actua tion aerosol inhaler Inhale 2 puffs every 4 hours by inhalati on route for 30 days. 07/17 completed Not Available Not Available Not Available Januvia 100 mg tablet TAKE 1 TABLET BY MOUTH EVERY DAY active Not Available Not Available No t Available FreeStyle Lite Strips Take 1 strip 3 times a day by miscell. route for 90 days. active Not Available Not Available No t Available Lantus Solostar U-100 Insulin 100 unit/mL (3 mL) subcutane ous pen INJECT 25 UNITS SUBCUTAN EOUSLY DAILY AT BEDTIME 06/26 completed Not Available Not Available Not Available Humalog KwikPen (U-100) Insulin 100 unit/mL subcutane ous INJECT 20 UNITS UNDER THE SKIN THREE TIMES DAILY BEFORE A MEAL active Not Available Not Available No t Available Novofine 32 32 gauge x 1/4 needle USE FOUR TIMES DAILY DIRECTED active Not Available Not Available No t Available Biotene Moisturiz ing Mouth mucosal spray spray into each nare prn 07/17 completed Not Available Not Available Not Available Durezol 0.05 % eye drops 06/12 completed Not Available Not Available Not Available GaviLyte- G 236 gram-22.7 4 gram-6.74 gram-5.86 gram oral solution PLEASE SEE ATTACHED FOR DETAILED DIRECTIO NS active Not Available Not Available No t Available Brilinta 90 mg tablet TAKE 1 TABLET BY MOUTH TWICE DAILY DIRECTED 09/27 completed Not Available Not Available Not Available Myrbetriq 25 mg tablet,ex tended release Take 1 tablet every day by oral route. 05/16 completed Started by urology. Not Available Not Available Not Available Myrbetriq 50 mg tablet,ex tended release TAKE 1 TABLET BY MOUTH EVERY DAY FOR BPH active Not Available Not Available No t Available Ilevro 0.3 % eye drops,baltazar pension 06/12 completed Not Available Not Available Not Available Virtussin AC 10 mg-100 mg/5 mL oral liquid Take 10 mL every 4 hours by oral route for 7 days. 01/16 completed Not Available Not Available Not Available Fluzone High-Dose 2014- (PF) 180 mcg/0.5 mL intramusc ular syringe active Not Available Not Available Not Available Jardiance 10 mg tablet TAKE 1 TABLET BY MOUTH EVERY DAY 03/04 completed Not Available Not Available Not Available Jardiance 25 mg tablet TAKE 1 TABLET BY MOUTH EVERY DAY active Not Available Not Available No t Available Trulicity 1.5 mg/0.5 mL subcutane ous pen injector ADMINIST ER 1.5 MG UNDER THE SKIN EVERY WEEK 12/21 completed Not Available Not Available Not Available Trulicity 0.75 mg/0.5 mL subcutane ous pen injector ADMINIST ER 0.75 MG UNDER THE SKIN EVERY WEEK 06/26 completed Not Available Not Available Not Available Humalog Connor KwikPen (U-100) 100 unit/mL subcutane ous half-unit pen Inject 0.6 mL by subcutan eous route. 04/25 completed pt sates sometime s 0.8 ML Not Available Not Available Not Available Shingrix (PF) 50 mcg/0.5 mL intramusc ular suspensio n, kit 04/27 completed Not Available Not Available Not Available Adult Aspirin Regimen 81 mg tablet,de layed release Take 1 tablet every day by oral route. active Not Available Not Available No t Available Ozempic 1 mg/dose (2 mg/1.5 mL) subcutane ous pen injector 10/31 completed Not Available Not Available Not Available Ozempic 0.25 mg or 0.5 mg (2 mg/1.5 mL) subcutane ous pen injector Inject 0.25 mg every week by subcutan eous route for 30 days. 04/04 completed Not Available Not Available Not Available FreeStyle [place]rico 14 Day [place] Take 1 each every day by miscell. route for 28 days. 06/04 completed Not Available Not Available Not Available FreeStyle Enrico 14 Day Sensor kit Take 1 kit every day by miscell. route for 28 days. 06/04 completed Not Available Not Available Not Available BD Joi 2nd Gen Pen Needle 32 gauge x 5/32 12/30 completed Not Available Not Available Not Available Fluad 65yr up(PF)45 mcg(15 mcgx3)/0. 5 mL intramusc ular syringe 04/27 completed Not Available Not Available Not Available Rybelsus 3 mg tablet TAKE 1 TABLET BY MOUTH EVERY DAY 02/03 completed Not Available Not Available Not Available Fluad Quad (65yr up)(PF) 60 mcg (15 mcg x 4)/0.5mL IM syringe ADM 0.5ML IM UTD 04/28 completed Not Available Not Available Not Available Trulicity 3 mg/0.5 mL subcutane ous pen injector ADMINIST ER 0.5 ML UNDER THE SKIN EVERY WEEK 06/04 completed Not Available Not Available Not Available Trulicity 4.5 mg/0.5 mL subcutane ous pen injector INJECT 4.5 MG SUBCUTAN EOUSLY EVERY WEEK 09/14 completed Not Available Not Available Not Available Gemtesa 75 mg tablet TAKE 1 TABLET BY MOUTH EVERY DAY FOR OVERACTI VE BLADDER active Not Available Not Available No t Available melatonin 1 mg chewable tablet Take 1 tablet every day by oral route. active Not Available Not Available No t Available FreeStyle [place] 3 Sensor device USE DIRECTED active Not Available Not Available No t Available Genabio COVID-19 Rapid At-Home kit TEST DIRECTED TODAY 12/30 completed Not Available Not Available Not Available Ozempic 0.25 mg or 0.5 mg (2 mg/3 mL) subcutane ous pen injector INJECT 0.5 MG SUBCUTAN EOUSLY EVERY WEEK FOR 30 DAYS. active Not Available Not Available No t Available Vitals Date Recorded Body height Body mass index (BMI) Body weight Heart rate Oxygen saturation Oxygen saturation in Arterial blood by Pulse oximetry Body temperature Systolic And Diastolic Provider Name and Address Organization Details Last Updated DateTime 5 157.48 cm 31.1 kg/m2 98106.7 g 105 /min 99 % 99 % 97.7 [degF] 136/74 mm[Hg] Mayte Mariscal MA [facility] 5 13:11:34 Date Recorded Body height Body mass index (BMI) Body weight Heart rate Oxygen saturation Oxygen saturation in Arterial blood by Pulse oximetry Body temperature Systolic And Diastolic Provider Name and Address Organization Details Last Updated DateTime 5 157.48 cm 32.1 kg/m2 18446.0 6 g 77 /min 98 % 98 % 98 [degF] 148/69 mm[Hg] Ele Cloud LPN [facility] 5 11:20:27 Date Recorded Body height Body mass index (BMI) Body weight Heart rate Oxygen saturation Oxygen saturation in Arterial blood by Pulse oximetry Body temperature Systolic And Diastolic Provider Name and Address Organization Details Last Updated DateTime 4 157.48 cm 30.6 kg/m2 07334.3 3 g 84 /min 97 % 97 % 98 [degF] 99/58 mm[Hg] Ele Cloud LPN [facility] 4 10:07:30 Date Recorded Body height Body mass index (BMI) Body weight Heart rate Oxygen saturation Oxygen saturation in Arterial blood by Pulse oximetry Body temperature Systolic And Diastolic Provider Name and Address Organization Details Last Updated DateTime 4 157.48 cm 29.6 kg/m2 50651.9 6 g 84 /min 98 % 98 % 98.1 [degF] 116/70 mm[Hg] Ele Colud LPN [facility] 4 09:45:03 Social History Question Answer Notes LastModified by Organizat ion Details LastModified Time Tobacco Smoking Status Former Smoker Quit 2015 DINESH Grewal [facility] 07/21/2024 13:13:42 Do You Have An Advance Directive? Yes [email or web address] Information not available 10/03/2015 Is [facility] Trans[facility] Acceptable In An Emergency? Yes [facility] not available 10/03/2015 What Is Your Level Of Caffeine Consumption? Occasional Black Coffee Information not available 07/02/2021 How Much Tobacco Do You Chew? None [facility] Information not available 10/03/2015 In The 14 Days Before Symptom Onset, Have You Had Close Contact With A Laboratory-confi rmed COVID-19 While That Case Was Ill? No [facility] Information not available 01/20/2020 In The 14 Days Before Symptom Onset, Have You Had Close Contact With A Person Who Is Under Investigation For COVID-19 While That Person Was Ill? No [facility] Information not available 01/20/2020 Have You Been To An Area Known To Be High Risk For COVID-19? No [facility] Information not available 01/20/2020 What Type Of Diet Are You Following? REGULAR Healthy Eating; No Fast Food [email or web address] Information not available 07/25/2022 Which Illicit Or Recreational Drugs Have You Used? None [facility] Information not available 10/03/2015 When Did You Quit Smoking? 16+yearssince lastkapil [facility] Information not available 07/25/2022 Live Alone Or With Others? With Others [facility] Information not available 07/19/2014 Do You Take Precautions To Prevent Distracted Driving? Yes [facility] Information not available 10/03/2015 How Often Do You Need To Have Someone Help You When You Read Instructions, Pamphlets, Or Other Written Material From Your Doctor Or Pharmacy? Never [facility] Information not available 10/03/2015 Have You Served In The ? Yes [employer] Information not available 04/18/2016 Have You Or Anyone In Your Household Had Any Of The Following Symptoms In The Last 14 Days: Sore Throat, Cough, Chills, Body Aches For Unknown Reasons, Shortness Of Breath For Unknown Reasons, Loss Of Smell, Loss Of Taste, Fever At Or Greater Than 100 Degrees Fahrenheit? No [facility] Information not available 01/20/2020 Are You Or Anyone In Your Household A Health Care Provider Or Emergency Responder? No [facility] Information not available 01/20/2020 To The Best Of Your Knowledge Have You Been In Close Proximity To Any Individual Who Tested Positive For COVID-19? No [facility] Information not available 01/20/2020 What Was The Date Of Your Most Recent Tobacco Screening? 07/21/2024 [email or web address] Information not available 07/21/2024 How Many Children Do You Have? 3 Information not available 07/19/2014 What Is Your Current Pack Years? 20-29packyear s Information not available 07/25/2022 Seat Belts Used Routinely Yes Information not available 10/03/2015 Are You Sexually Active? No Information not available 10/03/2015 Smoke Alarm In Home Yes Information not available 10/03/2015 At What Age Did You Start Smoking Tobacco? 14 Quit At 38 Information not available 07/25/2022 Are You Passively Exposed To Smoke? Yes [facility] Information not available 10/03/2015 How Much Tobacco Do You Smoke? 1 PPD Information not available 07/25/2022 Do You Use Sunscreen Routinely? Yes Information not available 10/03/2015 How Many Years Have You Smoked Tobacco? 24 Information not available 07/25/2022 Sex: Unknown Functional Status Question Answer Note LastModified by Aud[employer] ion Details LastModified Time Do you use any illicit or recreational drugs? No Information not available 07/02/2021 Do you or have you ever used any other forms of tobacco or nicotine? No Information not available 07/02/2021 What is your level of alcohol consumption? Occasional Information not available 07/19/2014 Do you or have you ever used smokeless tobacco? Never used smokeless tobacco [email or web address] Information not available 04/27/2019 Are you currently employed? Yes Information not available 07/19/2014 Are you able to walk? YESWOREST Information not available 07/02/2021 Are you able to care for yourself? 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 Never used electronic cigarettes [email or web address] Information not available 04/27/2019 What is your exercise level? Moderate walks his dog daily Information not available 07/25/2022 Mental Status None recorded. Family History Relationship Description Onset Age of this Age Resolved Age Notes LastModified by Organization Details LastModified Time Mother Diabetes mellitus [email or web address] Not available 10:48:55 Mother Graft complication s 77 [email or web address] Not available 10:48:55 Sister Diabetes mellitus [email or web address] Not available 10:48:55 Sister Diabetes mellitus [email or web address] Not available 10:48:55 Sister Diabetes mellitus [email or web address] Not available 10:48:55 Sister Diabetes mellitus [email or web address] Not available 10:48:55 Sister Diabetes mellitus [email or web address] Not available 10:48:55 Brother Diabetes mellitus [email or web address] Not available 10:48:55 Father Polioencepha litis 40 [email or web address] Not available 04/18 13:43:13 Notes:5 sisters and 1 brothe r (he's third) Medical History No medical history recorded. Immunizations Vaccine Type Date Status Note Provider Nam e and Address Organization Details Recorded Time Influenza, split virus, trivalent, PF 5 completed Pippa dunn [facility] 02/06/2023 11:33:28 zoster live 9 completed Pippa dunn [facility] 02/06/2023 11:33:28 pneumococcal polysaccharide PPV23 9 completed Pippa dunn [facility] 02/06/2023 11:33:28 Influenza, split virus, trivalent, preservative 9 terrie dunn [facility] 02/06/2023 11:33:28 Influenza, high-dose, quadrivalent, PF 1 completed Pippa dunn [facility] 02/06/2023 11:33:28 COVID-19, mRNA, LNP-S, PF, 100 mcg/0.5mL dose or 50 mcg/0.25mL dose 1 completed Pippa Elder null, [facility] 02/06/2023 11:33:28 COVID-19, mRNA, LNP-S, PF, 100 mcg/0.5mL dose or 50 mcg/0.25mL dose 1 completed Pippa Elder null, [facility] 02/06/2023 11:33:28 COVID-19, mRNA, LNP-S, PF, 100 mcg/0.5mL dose or 50 mcg/0.25mL dose 1 completed Pippa Elder null, [facility] 02/06/2023 11:33:28 zoster recombinant 9 completed Pippa Elder null, [facility] 02/06/2023 11:33:28 Influenza, split virus, trivalent, PF 0 completed Pippa Elder null, [facility] 02/06/2023 11:33:28 zoster recombinant 9 completed Pippa Elder null, [facility] 02/06/2023 11:33:28 zoster live 5 completed Pippa Elder null, [facility] 02/06/2023 11:33:28 Influenza, adjuvanted, trivalent, PF 9 completed Pippa Elder null, [facility] 02/06/2023 11:33:28 zoster live 4 completed Pippa Elder null, [facility] 02/06/2023 11:33:28 Pneumococcal conjugate PCV 13 5 completed Pippa Elder null, [facility] 02/06/2023 11:33:28 Influenza, high-dose, trivalent, PF 7 completed Pippa Elder null, [facility] 02/06/2023 11:33:28 Influenza, high-dose, trivalent, PF 6 completed Pippa Elder null, [facility] 02/06/2023 11:33:28 COVID-19, mRNA, LNP-S, PF, 100 mcg/0.5mL dose or 50 mcg/0.25mL dose 2 completed Pippa Elder null, [facility] 02/06/2023 11:33:28 Influenza, high-dose, trivalent, PF 8 completed Pippa Elder null, [facility] 02/06/2023 11:33:28 Tdap 5 completed Pippa Elder null, [facility] 02/06/2023 11:33:28 pneumococcal polysaccharide PPV23 6 completed Pippa Elder null, [facility] 02/06/2023 11:33:28 Influenza, high-dose, quadrivalent, PF 2 completed Angelita Schaefer CPPM null, [facility] 12/30/2023 10:59:22 COVID-19, mRNA, LNP-S, bivalent, PF, 50 mcg/0.5 mL or 25mcg/0.25 mL dose 2 completed Pippa Elder null, [facility] 02/06/2023 11:33:28 Influenza, adjuvanted, quadrivalent, PF 3 completed Ele Cloud RING STAMPER null, [facility] 03/19/2023 10:33:36 COVID-19, mRNA, LNP-S, PF, kingsley-sucrose, 30 mcg/0.3 mL 3 completed Ele Bainse, RING STAMPER null, [facility] 03/19/2023 10:33:36 Influenza, adjuvanted, trivalent, PF 4 completed Ele Caporale, RING STAMPER null, [facility] 04/02/2024 09:45:16 COVID-19, mRNA, LNP-S, PF, kingsley-sucrose, 30 mcg/0.3 mL 4 completed Ele Cloud LPN [facility] 04/02/2024 09:45:17 Past Encounters Encounter ID Performer Location Encounter Start Date Encounter Closed Date Diagnosis/Indication Diagnosis SNOMED-CT Code Diagnosis ICD10 Code Diagnosis Note [id number] Shirley Bernstein MD Main Office [address] [address] 07/19/2014 12:50:35 07/19/2014 14:05:38 Adult health examination 671998834 Type 2 bro[place] betes mellitus 27409013 Essential hypertension 91239093 Pulmonary congestion 03146230 [id number] Shirley Bernstein MD Main Office [address] [address] 10/24/2014 10:11:35 10/24/2014 11:18:23 Type 2 diabetes mellitus 78185266 I gave him a sliding scale for his Humalog and instructed him to take lantus 10 units. He will fax us the results of his sugars after 1 week so that I can adjust his insulin as needed. Administra tion of pneumococcal vaccine 65279818 Varicella vaccination 65366908 [id number] Shirley Bernstein MD Main Office [address] [address] 02/20/2015 13:35:55 02/20/2015 14:29:10 Type 2 diabetes mellitus 72761819 E11.9 I gave him a sliding scale for his Humalog and instructed him to take lantus 10 units. He will fax us the results of his sugars after 1 week so that I can adjust his insulin as needed. Administra tion of diphtheria, pertussis, and tetanus vaccine 601886791 Z23 Abdominal bloating 91694 9008 R14.0 [id number] KENA Noriega Main Office [address] [address] 04/04/2015 10:47:46 04/04/2015 11:13:11 Tick bite without infection 743741336 T14.8 Tick removed intact with weezers from right posterior thigh, area cleansed with alcohol, will treat with prophylact ic dose of doxy as patient was exposed on Friday. Patient instructed to eat a meal prior to taking dose of doxy, return for concerning symptoms. [id number] South Mendoza MD Main Office [address] [place] [address] 05/16/2015 08:46:24 05/16/2015 09:22:02 Pneumonia 050516408 J18.9 Wheezing 07679582 R06.2 [id number] Shirley Bernstein MD Main Office [address] [place] [address] 05/25/2015 13:24:36 05/25/2015 14:15:18 Type 2 diabetes mellitus 86164170 E11.9 I gave him a sliding scale for his Humalog and instructed him to take lantus 10 units. He will fax us the results of his sugars after 1 week so that I can adjust his insulin as needed. Gout 76789486 M10.9 Hypercholesterolemia 136 29133 E78.0 Benign pro static hyperplasia 267773852 N40.0 [id number] Shirley Bernstein MD Main Office [address] [address] 10/03/2015 10:18:20 10/03/2015 11:08:19 Adult health examination 306008189 Z00.00 Renal diso rder due to type 2 diabetes mellitus 919809690 E11.22 This continues to be under poor control and I will refer him to [facility] for further management . Hypercholesterolemia 136 63958 E78.0 His LDL remained above goal despite being on maximum dose atorvastat in. We will discuss the importance of compliance and recheck his level at next visit. Essential hypertension 30046200 I10 His BP is still running high so we will increase his dose of irbesartan from 150 to 300 mg. Obesity 315460670 E66.01 [id number] Shirley Bernstein MD Main Office [address] [place] [address] 11/02/2015 10:26:59 11/02/2015 11:54:47 Essential hypertension 64196745 I10 We increased his irbesartan from 150 to 300 at his last visit and his BP is under good control. Hypercholesterolemia 136 66843 E78.0 His LDL remained above goal despite being on maximum dose atorvastat in. We discussed the importance of compliance and will recheck his level at next visit. [id number] Yessenia Obrien PA-C Main Office [address] [address] [place] [address] 12/20/2015 10:12:43 12/20/2015 11:09:55 Renal disorder due to type 2 diabetes mellitus 155866333 E11.22 Uncontroll ed type 2 diabetes mellitus 956500930 E11.65 Increase Metformin to ER 500 mg 2 po qd. Continue Glipizide ER 10 mg BID. Continue Lantus at 10 u daily. Humalog was advised to use before meals only and not at HS on sliding scale. Pt. will test glucose TID premeal and return in 4 weeks with log. Repeat microalbum in. Viral disease 96410929 B 34.9 Microalbuminuria 2668265 06 R80.9 [id number] Shirley Bernstein MD Main Office [address] [address] [place] [address] 01/17/2016 10:47:52 01/17/2016 11:45:54 Renal disorder due to type 2 diabetes mellitus 422263042 E11.22 Improving control; continue to follow with Gary. Essential hypertension 04793422 I10 We increased his irbesartan from 150 to 300 and his BP is under good control. Hypercholesterolemia 136 86342 E78.0 Taking maximum dose of lipitor. Administra tion of pneumococcal vaccine 49382393 Z23 Needs infl uenza immunization 484990994 Z23 [id number] Lester Obrien PA-C Main Office [address] [place] [address] 04/18/2016 13:44:30 04/18/2016 14:46:20 Superficial abrasion 890596792 S80.01XA no evidence of infxn at this time, but already has apptmt for f/u visit 12.6 which will be a great opportunit y to re-eval [id number] Shirley Bernstein MD Main Office [address] [address] [place] [address] 04/24/2016 09:32:47 04/24/2016 11:08:37 Renal disorder due to type 2 diabetes mellitus 595997518 E11.22 He is not tolerating the metformin because of diarrhea. He was instructed to stop this to see if the diarrhea improves and we will start januvia in it's place. He will f/u in 1 month with Yessenia for further mgmt. Diarrhea 83305234 R19.7 This may be from his metformin. He was instructed to stop this. If the diarrhea persists we will continue with the w/u or refer him to GI for further evaluation . Hyperlipidemia 66417037 E78.5 His LDL was not at goal when we checked in September. We adjusted his meds at that time. We will check fasting lipids again and adjust if needed. Essential hypertension 29346180 I10 His BP is running high in the office. He states that it is normal at home. We will continue with current mgmt and will call him to see how it is running outside of the office. [id number] Yessenia Obrien PA-C Main Office [address] [place] [address] 05/29/2016 09:43:40 05/29/2016 11:02:49 Uncontrolled type 2 diabetes mellitus 088981824 E11.65 Uncontroll ed diabetes due to ? compliance to insulin. WE reviewed how her insulins work and I advised that pt. takes Lantus daily at 10 u w/o switching dosage at the same time. HUmalog take based on premeal reading. If premeal glucose is under 150 take 10 u, 150 or above at take 15 u. Pt. will notify me if any readings under 70 and will avoid skipping or postponing his main meals to avoid hypoglycem ia. F/u 1 month with glucose records. Renal diso rder due to type 2 diabetes mellitus 561498834 E11.22 Repeat microalbum in level. Continue working on lowering BP. Essential hypertension 51555246 I10 Pt. was advised to lower caffeine and sodium. Continue trying to lose weight. ? compliance to BP meds. Pt. is advised to take meds as directed . Test BP daily at home and return in 1 month for f/u. Disorder o f eye due to type 2 diabetes mellitus 917578156 E11.39 F/u with ophthalmol ogist in July as scheduled . 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 Increase ASA to reg. strength 325 mg daily. Uncontroll ed type 2 diabetes mellitus 377604506 E11.65 Meds reviewed. Increase Lantus to 15 u . HUmalog the same but use TID. Log glucose TID. Continue oral antidiabet ics. Renal diso rder due to type 2 diabetes mellitus 670427637 E11.22 Repeat microalbum in level. Continue working on lowering BP. Chest pain 44813545 R07. 9 EKG changes and chest pain. Pt. will be seeing cardiologi st [facility]. ADvised to gop to the ER if chest pain re occurs in the mean time. Increase ASA to 325 mg daily. Metoprolol to 50 mg BID. Pt. was advised to decrease work load and no exercise . Coronary atherosclerosis 444611199 I25.10 [id number] KENA Noriega Main Office [address] [address] 07/11/2016 10:11:03 07/11/2016 11:31:53 Acute non-ST segment elevation myocardial infarction 639705162 I21.4 06/27, s/p stent on 07/01, discharged home 07/02, deies chest pain, palpitatio ns, SOB, exercise intoleranc e, feels he was doing great until yesterday. Epistaxis 38190095 R04.0 He has a hx of this and sees ENT, Brilinta and ASA on hold, nasal packing in place on right to see ENT today. Essential hypertension 44529013 I10 BP 158/78. repeated manually with readings 141/80 Right and 136/78 Left. Awaiting call back from cardiology . Uncontroll ed type 2 diabetes mellitus 056961154 E11.65 continue current meds. [id number] Shirley Bernstein MD Main Office [address] [facility] [address] [place] [address] 09/12/2016 09:17:31 09/12/2016 09:59:05 Essential hypertension 67260681 I10 He states that his BP is still running a little high. He will be seeing cardiology later today. I gave him a note to bring to there office about increasing his coreg which is a script he gets from them since he is post-OR. Gout 38352176 M10.9 Renal diso rder due to type 2 diabetes mellitus 815969788 E11.22 He is not tolerating the metformin because of diarrhea. He has been c/w januvia and glipizide and using insulin as well. His A1C has been coming down. Chronic ki dney disease stage 1 036229580 N18.1 Stable; microalbui nemia. We will follow creatinine and refer as needed. Type 2 brook[place] betes mellitus 17408773 E11.9 [id number] Shirley Bernstein MD Main Office [address] [place] [address] 12/12/2016 09:58:41 12/12/2016 11:03:43 Adult health examination 490776793 Z00.00 He is UTD with colonoscop y. He is followed by urology where he has his PSA followed. He is UTD with his immunizati ons. Renal diso rder due to type 2 diabetes mellitus 571844441 E11.29 He is not tolerating the metformin because of diarrhea. He has been c/w januvia and glipizide and using insulin as well. His A1C has been coming down. Obesity 450321203 E66.01 Irritable bowel syndrome with diarrhea 511055518 K58.0 Essential hypertension 70726025 I10 His BP has been under better control since going up on his coreg dose. Hyperlipidemia 82809813 E78.5 His LDL is at goal. We will continue current mgmt. [id number] Shirley Bernstein MD Main Office [address] [address] [place] [address] 01/16/2017 13:43:30 01/16/2017 15:10:30 Influenza vaccine needed 2878942398 106 Z23 Contusion of thumb 72726 000 S60.111A at right thumb under nail; no evidence for infection. Monitor and call if any changes. Crushed in between objects 47245370 W23.1XXA [id number] Lester Obrien PA-C Main Office [address] [place] [address] 02/11/2017 13:00:03 02/11/2017 14:08:49 Pre-surgery evaluation 571021186 Z01.818 Cataract 739662096 H25.0 12 Renal diso rder due to type 2 diabetes mellitus 506223090 E11.22 A1C down to 7.5 a few months ago Irritable bowel syndrome 89945242 K58.0 cont to f/u c GI Hyperlipidemia 52195093 E78.5 Body mass index 30+ - obesity 463892621 Z68.36 Obesity 098015989 E66.9 Chronic ki dney disease stage 1 706428025 N18.1 Hypertensi ve renal disease 14031274 I12.9 stable, cont meds as dir [id number] hSirley Bernstein MD Main Office [address] [place] [address] 03/13/2017 10:04:46 03/13/2017 10:37:22 Renal disorder due to type 2 diabetes mellitus 856851333 E11.22 He will start taking lantus 15 units at bedtime instead of using a sliding scale. If his sugars go below 70 he will decrease to 12 units at bedtime. Chronic ki dney disease stage 1 616572543 N18.1 Hyperlipidemia 73900733 E78.5 His LDL is at goal. We will continue current mgmt. Essential hypertension 08256830 I10 His BP has been under better control since going up on his coreg dose. [id number] Shirley Bernstein MD Main Office [address] [place] [address] 06/12/2017 11:28:35 06/12/2017 12:05:13 Renal disorder due to type 2 diabetes mellitus 398828474 E11.22 He will increase his lantus from 15 to 17 units and f/u in 3 months. Chronic ki dney disease stage 1 373441185 N18.1 We will follow his creatinine and make a referral as needed [id number] Shirley Bernstein MD Main Office [address] [place] [address] 07/24/2017 16:07:49 07/24/2017 16:24:47 Hematoma 602678665 M79.81 No further w/u needed. It is possible that he banged his side and the aspirin makes him more prone to easy bruising. [id number] Shirley Bernstein MD Main Office [address] [facility] [address] [place] [address] 09/10/2017 09:50:09 09/10/2017 10:54:26 Renal disorder due to type 2 diabetes mellitus 817476384 E11.22 He will increase his lantus from 15 to 17 units and f/u in 3 months. Chronic ki dney disease stage 1 503433596 N18.1 We will follow his creatinine and make a referral as needed Essential hypertension 46932939 I10 His BP has been under better control since going up on his coreg dose. Hyperlipidemia 07328045 E78.5 His LDL is at goal. We will continue current mgmt. [id number] Shirley Bernstein MD Main Office [address] [facility] [address] [place] [address] 12/15/2017 10:49:49 12/15/2017 11:54:23 Adult health examination 029068973 Z00.00 He is UTD with colonoscop y and due again in 2024. He is followed by urology where he has his PSA followed. He is UTD with his immunizati ons but was advised to get the new shingles vaccine at this local pharmacy. Chronic ki dney disease stage 1 665972762 N18.1 We will follow his creatinine and make a referral as needed Renal diso rder due to type 2 diabetes mellitus 535208409 E11.22 He continues with the same meds. His A1C continues to slowly improve. Acute non- ST segment elevation myocardial infarction 851752974 I21.4 Stable on meds and followed by cardiology . Varicella vaccination 68 465672 Z23 Body mass index 30+ - obesity 022129697 E66.01 Z68.35 [id number] Shirley Bernstein MD Main Office [address] [facility] [address] [place] [address] 02/27/2018 10:41:54 02/27/2018 11:36:40 Renal disorder due to type 2 diabetes mellitus 352524377 E11.22 He continues with the same meds. His A1C continues to slowly improve. Influenza vaccine needed 4880905438 106 Z23 Chronic elvis dney disease stage 1 603135378 N18.1 We will follow his creatinine and make a referral as needed Essential hypertension 32730780 I10 His BP has been under better control since going up on his coreg dose. Hyperlipidemia 87742585 E78.5 His LDL is at goal. We will continue current mgmt. Coronary arteriosclerosis 94694024 I25.10 followed by cardiology [id number] Shirley Bernstein MD Main Office [address] [place] [address] 06/01/2018 09:03:10 06/01/2018 10:02:44 Renal disorder due to type 2 diabetes mellitus 774917072 E11.22 He was given a sliding scale and will record his glucose and return in 1 month to review. Body mass index 30+ - obesity 980105525 E66.01 Z68.35 Chronic ki dney disease stage 1 374330505 N18.1 We will follow his creatinine and make a referral as needed Essential hypertension 66396448 I10 His BP has been under better control since going up on his coreg dose. Hyperlipidemia 52871307 E78.5 His LDL is at goal. We will continue current mgmt. [id number] Shirley Bernstein MD Main Office [address] [facility] [address] [place] [address] 06/25/2018 11:17:36 06/25/2018 12:26:18 Tight chest 65776334 R07.89 Abdominal pain 51987655 R10.9 Coronary arteriosclerosis 68510289 I25.10 followed by cardiology [id number] Shirley Bernstein MD Main Office [address] [address] 09/10/2018 09:58:25 09/10/2018 10:50:15 Renal disorder due to type 2 diabetes mellitus 000232451 E11.22 He was given a sliding scale but did not bring it in and a copy is not in the chart. He will bring in a copy later today and I will make adjustment s at that time. Chronic ki dney disease stage 1 607092192 N18.1 We will follow his creatinine and make a referral as needed Essential hypertension 14963488 I10 His BP has been under better control since going up on his coreg dose. Hyperlipidemia 16510202 E78.5 His LDL is at goal. We will continue current mgmt. [id number] Shirley Bernstein MD Main Office [address] [place] [address] 12/10/2018 09:06:09 12/10/2018 09:54:23 Cough 62281674 R05 Nasal congestion 9554915 0 R09.81 He will stop the afrin Renal diso rder due to type 2 diabetes mellitus 904693787 E11.22 He was given a sliding scale but did not bring it in and a copy is not in the chart. He will bring in a copy later today and I will make adjustment s at that time. Allergic conjunctivitis 064387329 H10.13 Chronic ki dney disease stage 1 757452134 N18.1 We will follow his creatinine and make a referral as needed [id number] Shirley Bernstein MD Main Office [address] [place] [address] 04/27/2019 10:27:48 04/27/2019 11:46:33 Adult health examination 414363382 Z00.00 He is UTD with colonoscop y and due again in 2024. He is followed by urology where he has his PSA followed. He is UTD with his immunizati ons. Nasal congestion 5918606 0 R09.81 Renal diso rder due to type 2 diabetes mellitus 075998103 E11.22 N18.1 Continue quarterly follow-up of serum creatinine , blood pressure, glycemic control. Referral to renal as indicated. His A1C is still running high. I encouraged him to use insulin (15 units) before each meal. Chronic ki dney disease stage 1 349167495 N18.1 We will follow his creatinine and make a referral as needed Essential hypertension 95594028 I10 His BP is under good control. [id number] Shirley Bernstein MD Main Office [address] [place] [address] 07/27/2019 09:49:10 07/27/2019 10:34:48 Renal disorder due to type 2 diabetes mellitus 477739436 E11.22 N18.1 His A1C continues to increase despite being c/w his meds. I will not make any changes but will instead refer him to [facility] for further mgmt. Essential hypertension 31485779 I10 His BP is under good control. Chronic ki dney disease stage 1 570222969 N18.1 We will follow his creatinine and make a referral as needed Coronary arteriosclerosis 57026892 I25.10 followed by cardiology Hyperlipidemia 82533069 E78.5 His LDL is at goal. We will continue current mgmt. [id number] South Mendoza MD Main Office [address] [facility] [address] [facility] [place] [address] 08/31/2019 12:02:03 08/31/2019 15:11:21 Renal disorder due to type 2 diabetes mellitus 069709600 E11.22 Lower Glipizide ER to 10 mg daily. Add Rybelsus at 3 mg daily for 1 month , after that go to 7 mg daily. F/u in 6 weeks after repeat A1c. Chronic ki dney disease stage 2 701969880 N18.2 continue ARB [id number] Shirley Bernstein MD Main Office [address] [place] [address] 01/20/2020 12:51:54 01/20/2020 13:36:15 Chronic kidney disease stage 2 409157839 N18.2 Essential hypertension 60825019 I10 His BP is under good control. Hyperlipidemia 46774707 E78.5 His LDL is at goal. We will continue current mgmt. Renal diso rder due to type 2 diabetes mellitus 441361600 E11.22 He has had some improvemen t in his A1C going from 9.0 to 8.3. Will increase his trulicity dose and see him back in 3 months. Pain in left knee 119033 4514 40011 M25.562 Has been a problem for months. No injury. Hurts when sleeping. Cough 73273711 R05 Has chest congestion which may be from PND/allerg ies. Nasal congestion 2365879 0 R09.81 [id number] Shirley Bernstein MD Main Office 36[address] [facility] [address] [place] [address] 04/28/2020 13:12:19 04/28/2020 13:59:24 Adult health examination 026954054 Z00.00 He is UTD with colonoscop y and due again in 2024. He is followed by urology where he has his PSA followed. He is UTD with his immunizati ons. Chronic ki dney disease stage 2 985366092 N18.2 Continue with ARB and follow his creatinine . Renal diso rder due to type 2 diabetes mellitus 168210993 E11.22 His A1C is increasing again because his trulicity and ozempic were not covered by his insurance. He will make a f/u with [facility]. Body mass index 30+ - obesity 249122655 E66.01 Z68.34 [id number] Lester Obrien PA-C Main Office [address] [place] [address] 09/27/2020 09:32:36 09/27/2020 10:43:11 Renal disorder due to type 2 diabetes mellitus 148370953 E11.22 A1C down from 9.4 a few months ago to 8.1, but will give trial of metformin 750mg ER qd then bid to try to lower even further --- hopefully he will tolerate the ER formulatio n (less diarrhea) Tinea corporis 82722650 B35.4 believe he has tinea corporis since itchy rash is along abdominal fold - will give trial of ant-fungal cream bid x 10-14 days, f/u sooner if worse/no better Chronic ki dney disease stage 2 775598830 N18.2 [id number] Shirley Bernstein MD Main Office [address] [place] [address] 10/31/2020 08:58:06 10/31/2020 09:48:45 Hypertensive renal disease 84261710 I12.9 Chronic ki dney disease stage 2 366637622 N18.2 Continue with ARB and follow his creatinine . Renal diso rder due to type 2 diabetes mellitus 695586697 E11.22 His A1C is increasing again because his trulicity and ozempic were not covered by his insurance. He will make a f/u with [facility]. Hyperlipidemia 35289718 E78.5 Last LDL at goal but due for a lipid level. [id number] Yessenia Micah BRENNAN Main Office [address] [place] [address] 01/03/2021 10:32:10 01/03/2021 11:03:25 Renal disorder due to type 2 diabetes mellitus 956121470 E11.22 A1c is in upper normal range, but weight is going up. We will try to add GLP-1 Ozempic to his diabetic regiment to discontinu e glipizide and maybe even insulin. F/u 3 m or sooner if he start new medicine. 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 needs to be started on GLP-1 for cardiovasc ular advantage. Trulicity 0.75 mg weekly will be initiated. Lower glipizide er to 5 mg and plan to discontinu e at next visit if GLP-1 is tolerated. Januvia will be stopped after this Rx is finished. Plan to increase trulicity in 6 weeks to 1.5 mg and d/c humalog. CGM Rx sent to pharmacy. F/u 6-7 weeks with glucose data. 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 We will continue trulicity 0.75. D/c lantus 15 u. Continue metfromin and glipizide er for now. At next visit will re evaluate for lowering glipizide er to 2.5-5 mg dose to avoid hypoglycem ia. 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 Test BP at weekly. F/u with PCP end of April. [id number] Shirley Bernstein MD Main Office [address] [address] 06/26/2021 14:12:44 06/26/2021 15:15:58 Renal disorder due to type 2 diabetes mellitus 937897091 E11.22 Diabetic control is not on target after holidays with A1c of 7.8%. WE will try next dose up on trulicity at 1.5 mg and continue other antidiabet ics. F/u 3 m or sooner. Chronic ki dney disease stage 2 623080406 N18.2 continue ARB Hypertensi ve renal disease 01512290 I12.9 Pt. is given his BP med list and advised to check if takes all 3 bp meds. Check BP at home daily and he is seeing cardiologi st this month. 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 [id number] Shirley Bernstein MD Main Office [address] [address] 07/02/2021 13:52:41 07/02/2021 15:00:36 Adult health examination 708065085 Z00.00 He is UTD with colonoscop y and due again in 2024. He is followed by urology where he has his PSA followed. He is UTD with his immunizati ons including COVID along with the booster. Hypertensi ve renal disease 06860845 I12.9 Running high. I sent a cortext to Dr Montano and we agreed to an increase in his carvedilol from 12.5 mg bid to 25 mg bid. Hyperlipidemia 76730955 E78.5 Last LDL at goal but due for a lipid level. Renal diso rder due to type 2 diabetes mellitus 436795025 E11.22 His A1C is increasing again because his trulicity and ozempic were not covered by his insurance. He will make a f/u with Y[facility]. Coronary arteriosclerosis 44329871 I25.10 followed by cardiology Chronic ki dney disease stage 2 991794310 N18.2 Continue with ARB and follow his creatinine . [id number] Shirley Bernstein MD Main Office [address] [facility] [address] [facility] [place] [address] 07/04/2021 12:40:27 07/04/2021 13:16:42 Gout 90035906 M10.9 Last episode was decades ago. Probable gout attack given h/o and the fact that this came on very fast w/o trauma. He will call next week if his symptoms persist. Will check uric acid level with the understand ing that it may be normal during an acute attack. [id number] Shirley Bernstein MD Main Office [address] [facility] [address] [facility] [place] [address] 07/17/2021 13:01:24 07/17/2021 14:04:08 Chest pain 87183754 R07.9 work up negative, waiting on cardiology appt with Dr. Montano, also due to for stress test. No chest pain, palpitatio ns, dizziness since his hospital visit. Uncontroll ed type 2 diabetes mellitus 510775322 E11.65 last a1c 7.8 early this month. on trulicity, metformin and glipizide per his bottles of meds he is taking. Renal diso rder due to type 2 diabetes mellitus 877250075 E11.22 Coronary arteriosclerosis 61671399 I25.10 Hypertensi ve renal disease 92562695 I12.9 keep appt 07/30, will not make med changes today but his BP is elevated. increasing carvedilol caused chest pain and bradycardi a so will leave up to PCP/ cardiology for med changes. 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 He will follow up with his cardiologi st tomorrow. Gout 74427076 M10.9 Recent gout attack. Not currently on prophylaxi s and uric acid level is 6.3. Will hold for now and give a script for indomethac in which helps when he gets an attack. Hyperlipidemia 09153372 E78.5 Last LDL at goal but due for a lipid level. Chronic ki dney disease stage 2 326198390 N18.2 [id number] Alex Goldberg MD Main Office [address] [place] [address] 09/21/2021 10:01:06 09/21/2021 11:27:58 Renal disorder due to type 2 diabetes mellitus 153814323 E11.22 Diabetic control is not on target yet with A1c of 7.6% but improved. WE will try next dose up on trulicity at 3 mg and continue metformin er 750 bid. Eliminate glipizide er . F/u 3 months . 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 WE will push Trulicity to max 4.5 mg after he is done with current script which is another 2 months. WE will start Jardiance 10 mg daily and repeat bmp and microalbum in in 4 weeks. Lower glipizide er to 5 mg until increase in trulicity and after pt start 4.5 mg , he will drop glipizide ER. F/u 6 weeks. 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 [id number] Shirley Bernstein MD Main Office 36[address] [facility] [address] [facility] [place] [address] 12/31/2021 12:39:44 12/31/2021 13:16:44 Hypertensive renal disease 96770129 I12.9 Good control today; continue current mgmt. Chronic ki dney disease stage 2 517775450 N18.2 He will continue with current meds and we will follow labs. Hyperlipidemia 09969803 E78.5 Last LDL at goal but due for a lipid level. Renal diso rder due to type 2 diabetes mellitus 794534941 E11.22 His A1C has been improving over the last year and his trulicity is now covered. He is followed by [facility]. [id number] Aman Le MD Main Office [address] [facility] [address] [place] [address] 02/08/2022 10:46:16 02/08/2022 11:41:07 Renal disorder due to type 2 diabetes mellitus 724473665 E11.22 Stable diab control. Goal A1c is under 7%. We will try Jardiance at max dose 25 mg, lower glipizide ER to 5 mg, continue metfromin ER 750 and trulicity 3 mg. Continue low calorie diet and exercise. F/u 2 m. Chronic ki dney disease stage 2 638440481 N18.2 continue ARB, add SGLT-2. [id number] TAWNY SEGURA MD Main Office 36[address] [facility] [address] [facility] [place] [place] [address] 03/19/2022 08:44:00 03/19/2022 09:49:36 Transition from acute care to self-care 0432177046 25004 Z76.89 - pt was hospitaliz ed at [facility] for NSTEMI- cath was done however no stents were stents were placed- pt followed with cardiologi st on 03/06 Hypertensi ve renal disease 83743070 I12.9 - BP on arrival was 153/62 and on repeat it was 137/66- BP at home currently in the 150s- pt is currently on irbesartan 300mg, isosorbide mononitrat e ER 30mg, tolterodin e 4mg- will resume the carvedilol 12.5mg BID as pt BP not well controlled at home and HR is appropriat e> cardiologi st also indicated to start back on medication - continue to follow up with cardiologi st- counselled patient on reducing stress Acute non- ST segment elevation myocardial infarction 271280287 I21.4 - EKG was showing RBBB, elevated troponin, he was diagnosed with a non-STEMI. - Started on heparin drip and transferre d to- cardiac cath showed moderate nonobstruc tive CAD with no culprit lesion identified . Productive cough 6666062 5 R05.9 - pt has been having a chronic productive cough for several years- first thought to be due to allergies however flonase is not providing much relief- ordered chest x-ray for further evaluation > previous in 2019 showed no abnormalit ies- if negative it may be beneficial for patient to under PFT testing for CODP (pt has a smoking history) Chronic ki dney disease stage 2 757624197 N18.2 [id number] Alex Goldberg MD Main Office [address] [facility] [address] [place] [address] 06/04/2022 09:35:29 06/04/2022 10:19:08 Renal disorder due to type 2 diabetes mellitus 691270852 E11.22 Uncontroll ed diabetes due to nonadheren ce to diet and testing. Pt. is advised to use CGM , Enrico 3 sensors sent to pharmacy. Increase Trulicity to 4.5 mg weekly , continue metfromin ER 750, glipizide ER 5 mg 2 daily for now and start following diabetic diet. F/u 6 weeks. Chronic ki dney disease stage 2 704710946 N18.2 continue ARB, add SGLT-2. Hyperlipidemia 06946435 E78.5 retest fasting lipids. Microalbuminuria 0309009 06 R80.9 [id number] Shirley Bernstein MD Main Office [address] [place] [address] 07/10/2022 10:41:31 07/10/2022 11:49:21 Adult health examination 068372825 Z00.00 He is UTD with colonoscop y and due again in 2024. He is followed by urology where he has his PSA followed. He is UTD with his immunizati ons including COVID along with the booster. Coronary arteriosclerosis 20807313 I25.10 followed by cardiology Chronic ki dney disease stage 2 975005346 N18.2 He will continue with current meds and we will follow labs. Hyperlipidemia 00518190 E78.5 Last LDL at goal but due for a lipid level. Body mass index 30+ - obesity 928266355 E66.9 Z68.32 Pain of bi lateral knee joints 0211305387 90601 M25.561 M25.562 Has never been injected. Will refer to [facility] to discuss options. Skin tag 577845222 L91.8 He will make his own derm appointmen t. 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 [id number] Shirley Bernstein MD Telehealt h [address]40 [facility] [address] [place] [address] 07/25/2022 12:58:24 07/25/2022 14:04:57 Nasal congestion 92958932 R09.81 Renal diso rder due to type 2 diabetes mellitus 386135902 E11.22 His A1C has been improving over the last year and his trulicity is now covered. He is followed by Y[facility]. Memory impairment 964983 006 R41.3 Problems have been noted by both him and his . The w/u is already in progress. Labs have been ordered and he will get those done today. A head MRI and a neuropsych referral have already been placed. [id number] Alex Goldberg MD Main Office [address] [address] 08/07/2022 09:45:10 08/07/2022 10:39:21 Renal disorder due to type 2 diabetes mellitus 097473809 E11.22 Improving glucose control, but glipizide er can be high risk for random hypoglycem ia , jalyn with weight loss. A1c is not at goal. WE will lower glipizide to 5 mg dialy ER, start jardiance 10mg daily Chronic ki dney disease stage 2 447755231 N18.2 continue ARB, add SGLT-2. Hypertensi ve renal disease 24164096 I12.9 Symptomati c hypertensi on today due to weight loss and multiple cardiac and HTN meds. Lower irbesartan to 150 mg daily. Test bp daily , f/u in 1 m. Increase fluids. 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 Continue current therapy, continue testing blood pressure at home. F/u 3 m. Chronic ki dney disease stage 2 580558691 N18.2 continue ARB, add Jardiance 10 mg. Repeat bmp in 4 weeks. 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 F/u 3 m. [id number] Alex Goldberg MD Main Office [address] [place] [address] 12/18/2022 13:37:34 12/18/2022 14:32:45 Hypertensive renal disease 14051459 I12.9 Stable HTN now due to stress reduction and weight loss. Also, dosages were reduced . Pt. will continue testing and following low sodium diet. F/u 4 m. Renal diso rder due to type 2 diabetes mellitus 863692738 E11.22 Stable diabetic control. We will d/c glipizide er 2.5 mg to avoid hypoglycem ia. Continue trulicity and metformin. F/u 4 m. recheck cmp. Chronic ki dney disease stage 2 952225969 N18.2 Continue ARB and SGLT-2. [id number] Shirley Bernstein MD Main Office [address] [place] [address] 01/08/2023 09:09:42 01/08/2023 09:56:04 Hypertensive renal disease 76609490 I12.9 Sometimes symptomati c with low readings. He was instructed to hold his amlodipine Irritable bowel syndrome with diarrhea 174909876 K58.0 He will try to make some dietary changes and will also do a trial of probiotics . Dementia 66341033 F03.90 This is mild. He is still able to drive w/o getting lost and his terminal worker memory is intact. He was seen by the memory clinic at [facility] last week and has a 6-month f/u. We will consider adding an SSRI in the future if he has symptoms after he retires this week. Snoring 95890706 R06.83 Chronic ki dney disease stage 2 745005667 N18.2 He will continue with current meds and we will follow labs. [id number] JAZLYN TELLES Main Office [address] [facility] [place] [address] 03/19/2023 10:22:27 03/19/2023 11:03:11 Transition of care from emergency department to self-care 8678646278 93974 Z76.89 Subdural i ntracranial hematoma 30954631 S06.5X0A head CT from [facility] revealed:- 6 mm right parafalcin e subdural hematoma. No intraparen chymal hemorrhage or skull fracture.- since discharge pt denies of any confusion/ AMS, n/v/d, chest pain, SOB-pt is scheduled to complete another head CT scan tomorrow Fractured nasal bones 26 4165907 S02.2XXA -Bilateral nasal bone fractures, mildly displaced on the left-denie s of any difficulty with breathing or SOB-plans to follow up with Josiah ESQUIVEL, Aparadha for surgical correction Multiple o pen wounds of head 358430239 S01.90XA -3 wounds that are now scabbing over from a fall down 3 steps- Mild frontal scalp hematoma.- mild temporal scalp hematoma-n o signs of infection; no swelling, discharge. -pt requests antibiotic to apply over wounds Fall W19.XXXA [id number] Alex Goldberg MD Main Office [address] [facility] [place] [address] 04/22/2023 09:59:01 04/22/2023 11:01:35 Renal disorder due to type 2 diabetes mellitus 612434516 E11.22 A1c above goal at 8.1% today. Continue trulicity, metformin, and jardiance. Restart glipizide ER 2.5 mg & educated pt to monitor for hypoglycem ia. F/u 6 weeks . repeat bmp today. Continue hydration. Hypertensi ve renal disease 29987800 I12.9 BP stable. Cont meds. Continue home monitoring and following low sodium diet. F/u 4 m. 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 [id number] Shirley Bernstein MD Main Office [address] [facility] [address] [place] [address] 05/16/2023 13:46:38 05/18/2023 17:28:28 [id number] Shirley Bernstein MD Main Office [address] [address] 05/20/2023 14:59:21 05/20/2023 15:54:44 Impacted cerumen of bilateral ears 1663539825 271238 H61.23 Acute non- ST segment elevation myocardial infarction 034443539 I21.4 Stable on meds and followed by cardiology . Coronary arteriosclerosis 85781543 I25.10 followed by cardiology Hypertensi ve renal disease 61376722 I12.9 Continue current mgmt. Chronic ki dney disease stage 2 664729455 N18.2 He will continue with current meds and we will follow labs. [id number] Alex Goldberg MD Main Office [address] [address] 06/18/2023 15:33:39 06/18/2023 16:06:17 Renal disorder due to type 2 diabetes mellitus 647338788 E11.22 A1c above goal at 8.1% today. Continue trulicity, metformin, and jardiance and glipizide 5 mg. Pt. advised to come accompanie d by his or another family member due to memory issues. Labs for CMP and A1c to be repeated in 6 weeks. Pt. has remi with PCP next month. F/u for DM in 3 m. Chronic ki dney disease stage 2 801788190 N18.2 Continue ARB and SGLT-2. 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 Hypothyroidism 11255146 E03.9 [id number] Shirley Bernstein MD Main Office [address] [facility] [address] [place] [address] 07/15/2023 09:34:01 07/15/2023 10:23:49 Adult health examination 412423891 Z00.00 He is UTD with colonoscop y and due again in 2024. He is followed by urology where he has his PSA followed. He is UTD with his immunizati ons including COVID along with all boosters, tetanus and due again next year, flu, pneumonia and shingles. Benign pro static hyperplasia 113919995 N40.0 Followed by urology. Chronic ki dney disease stage 2 478286959 N18.2 He will continue with current meds and we will follow labs. Hypertensi ve renal disease 33543207 I12.9 Continue current mgmt. 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 Dementia 88506915 F03.90 This is mild. He is still able to drive w/o getting lost and his terminal worker memory is intact. He was seen by the memory clinic at [facility] 6 months ago. He is also followed by neurology. Taking donepezil. Hypothyroidism 17768371 E03.9 Gout 23325121 M10.9 Recent gout attack. Not currently on prophylaxi s and last uric acid level is 6.3. Will give a script for indomethac in which helps when he gets an attack. Renal diso rder due to type 2 diabetes mellitus 295932164 E11.22 His A1C has been improving over the last year and his trulicity is now covered. He is followed by Y[facility]. Advance care planning 71 5975403 Z71.89 He has a living will and HCP in place. [id number] Alex Goldberg MD Main Office [address] [facility] [address] [facility] [place] [address] 09/17/2023 09:58:18 09/17/2023 10:47:57 Renal disorder due to type 2 diabetes mellitus 882585187 E11.22 stable type II diabetes. Discontinu e glipizide 65 mg. Pt. will switch back to Ozempic 0.25 mg weekly for 4 weeks, then 0.5 mg weekly to replace trulicity 4.5 mg. Continue Jardiance and metformin . PLan to decrease metfromin to ER 750 one per day at next visit. Chronic ki dney disease stage 2 538179125 N18.2 Continue ARB and SGLT-2. Hypertensi ve renal disease 82317239 I12.9 BP stable. Cont meds. Continue home monitoring and following low sodium diet. F/u with cardiology in November. [id number] Aman Le MD Main Office [address] [place] [address] 11/12/2023 15:22:16 11/12/2023 16:04:39 Drug-induced constipation 34124691 K59.03 Ozempic induced constipati on with abdominal discomfort . recommend to continue fiber and fluids. Add daily MiraLax 17 gm . If still having irrg bowel or hard stool, can increase to 1 scoop twice daily. F/u if needed in 1 m. Hypertensi ve renal disease 13900758 I12.9 Low bp. WE will lower amlodipine to 5 mg daily and continue other bp meds. Chronic ki dney disease stage 2 764443094 N18.2 Continue ARB and SGLT-2. [id number] Shirley Bernstein MD Main Office [address] [place] [address] [place] [address] 12/22/2023 13:08:45 12/23/2023 07:53:13 [id number] Aman Le MD Main [address] [place] [address] 12/31/2023 10:04:02 12/31/2023 10:46:12 Renal disorder due to type 2 diabetes mellitus [id number] E11.22 Increase in A1c since last visit. Pt. reports to visit w/o his . Has dementia. Reports depression after having cardiac event recently with pacemaker placement. [facility]idepres s[facility].Tiago m to increase Jardiance to 25 mg daily, continue metformin and Ozempic. I discussed plan with his over the phone and provided written instructio ns for pt and his to review at home.F/u 3 m. Repeat labs fasting plus urine in 2 weeks time ( discussed with pt's ). 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 Hypertensi ve renal disease 07319622 I12.9 stable blood pressure. F/u with cardiology . Hyperlipidemia 06178631 E78.5 retest fasting lipids. [id number] Shirley Bernstein MD Main Office [address] [facility] [address] [facility] [place] [address] 01/14/2024 09:55:48 01/14/2024 10:38:08 Hypertensive renal disease 81803054 I12.9 Continue current mgmt. Renal diso rder due to type 2 diabetes mellitus 974399470 E11.22 His A1C has been improving over the last year and his dose of ozempic was recently increased. Followed by Yessenia. Dysfunctio n of eustachian tube 98730287 H69.91 His right ear feels blocked. He will restart his flonase. Bradycardia 55097305 R00 .1 Pacemaker was placed on 12/21/[address] Turcios at [place]. He had a f/u on 01/05 for a wound check and device check and will be transition ed to a local cardiologi st. Chronic ki dney disease stage 2 230047319 N18.2 He will continue with current meds and we will follow labs. [id number] Aman Le MD Main Office [address] [facility] 207 [facility] [place] [address] 04/02/2024 09:29:31 04/02/2024 10:14:22 Renal disorder due to type 2 diabetes mellitus [id number] E11.22 Stable A1c since Ozempic increased to o0.5 mg. PT's reports he is not eating enough. Pt. is advised to increase calories to 3 well balance low calorie meals per day and continue hydration. Recom to continue current treatment plan. F/u 3 -4 m. Nasal congestion 9795280 0 R09.81 Chronic ki dney disease stage 2 450171415 N18.2 Continue ARB and SGLT-2. 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 F/u with cardiology . [id number] Shirley Bernstein MD Main Office [address] [facility] 207 [place] [address] 07/21/2024 13:01:16 07/21/2024 15:04:16 Adult health examination 340219258 Z00.00 He is UTD with colonoscop y and due again in 2024.He is followed by urology where he has his PSA followed.Marissa mercado is UTD with his immunizati ons including COVID along with all boosters, flu, pneumonia and shingles.Marissa mercado is due for a tetanus vaccine and will get this at his pharmacy. Allergic rhinitis 525236 04 J30.9 Pain of bi lateral knee joints [id number] 47185 M25.561 M25.562 Has never been injected. Will refer to [facility] to discuss options. Screening for malignant neoplasm of colon 000167285 Z12.11 He was given the referral and will make his own appointmen t. Benign pro static hyperplasia 224487377 N40.0 Followed by urology. Chronic ki dney disease stage 2 980332672 N18.2 He will continue with current meds and we will follow labs. Coronary arteriosclerosis 06363761 I25.10 followed by cardiology Hyperlipidemia 62981665 E78.5 Last LDL at goal. Hypertensi ve renal disease 20306394 I12.9 Continue current mgmt. 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 Dementia 05419958 F03.90 This is mild. He is still able to drive w/o getting lost and his snf memory is intact. He was seen by the memory clinic at [facility] in December 2022. He is also followed by neurology. Taking donepezil and memantine. Renal diso rder due to type 2 diabetes mellitus 006855397 E11.22 His A1C has been improving over the last year and his dose of ozempic was recently increased. Followed by Yessenia. [id number] Shirley Bernstein MD Main Office [address] [place] [address] 09/10/2024 10:43:21 09/14/2024 10:54:13 [id number] Shirley Bernstein MD Main Office [address] [place] [address] 10/13/2024 11:04:37 10/13/2024 11:58:03 Type 2 diabetes mellitus 10155980 E11.9 Meds reviewed. Pt has not been taking metformin twice daily. recommend to increase to BID and continue Ozempic 0.5 mg weekly. F/u 3 m. Essential hypertension 31842679 I10 in office blood pressure is above recommende d level. case management referral is made and case management met patient and provided blood pressure meter to test at home and will f/u with pt and his on results. [facility] team will also plan home visit to see if medication s are taken correctly. F/u scheduled for PCP in 1 m. Coronary arteriosclerosis 71973533 I25.10 recent ER visit for syncope. ER notes reviewed. Troponin was initially elevated, but serial troponin trended down. ? when cardiology was last consulted. [facility]. WE will obtain notes. [facility] team will verify which cardiologi st he sees and if he has remi for syncope and being further evaluated. Dementia 01409039 F03.90 F/u with PCP in 4 weeks to discuss. Pt sees neurologis t. Pt is advised to be accompanie d for all his medical visits. Health Concerns Section Related Observation LastModified by Organization Detai ls LastModified Time None Recorded Concern Status LastModified by Organization Details LastModified Time None Recorded Advance Directives Directive Y: Payers Insurance Date Sequence Insurance Name Policy Number Policy Quiles Covered Member ID Quiles Member ID Guarantor Name 10/13/2024 1 MEDICARE [place]: [employer] Lopez Wolff [id number] Lopez Wolff 10/25/2024 2 [facility] (MEDICARE SUPPLEMENT) Lopez Wolff [id number] Lopez Wolff 01/29/2024 1 [facility] (O) [id number] Lopez Wolff [id number] Lopez Wolff 01/29/2024 1 [facility] (O) [id number] Lopez Wolff [id number] Lopez Wolff Notes Date Note Type Note Provider Name and Address Organization Details Recorded Time 01/14/2024 text/html Diabetes F/URepo rted bypatient.Notes:He was instructed to increase his ozempic dose but he did not initially tell his and he stayed on the same dose. He has since increased it from 0.25 mg to 0.5 mg. He is followed by Yessenia and has a f/u scheduled.Hypertension F/UReported bypatient.Associated Symptoms:no dizziness; no lightheadedness; no chest pain; no shortness of breath; no palpitations; no edema; no calf pain with exertion Lifestyle:limiting/felix iding salt;not exercising regularly Medications:taking medications as directed; no side effects from medication He had bradycardia and near syncope which necessitated a pacemaker placement done by Dr Turcios on 12/21/23 and [place]. He had a f/u device check/wound check on 01/05 and is doing well. He was advised to make an appointment with a lease buyer locally. Zulma dunn [facility] 01/22/2024 15:26:27 04/02/2024 text/html Diabetes F/URepo rted bypatient.Notes:Meds: Ozempic 0.5 mg weekly, Jardiance 25 mg, metfromin ER 750 mg. He was instructed to increase his ozempic dose but he did not initially tell his and he stayed on the same dose. He has since increased it from 0.25 mg to 0.5 mg.A1c today is. Diabetic eye exam completed in January. PT. has h/o moderate diabetic nonproliferative retinopathy.Hypertensi on F/UReported bypatient.Associated Symptoms:no dizziness; no lightheadedness; no chest pain; no shortness of breath; no palpitations; no edema; no calf pain with exertion Lifestyle:limiting/felix iding salt;not exercising regularly Medications:taking medications as directed; no side effects from medication He had bradycardia and near syncope which necessitated a pacemaker placement done by Dr Turcios on 12/21/23 and [place]. He had a f/u device check/wound check on 01/05 and is doing well. He was advised to make an appointment with a lease buyer locally. Yessenia Obrien PA-C [address] [address], [place], [phone], [facility] 04/02/2024 10:58:44 07/21/2024 text/html Generic HPI TemplateReported bypatient.Notes:He is now fully retired which is a mixed blessing since he no longer has a purpose and spends much of his time sleeping or on the couch.Having increasing problems with his memory especially his short term memory. 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.His HTN and cholesterol both have been under good control with current mgmt.His diabetes has been improving since being on trulicity and he is followed by Yessenia.He has bilateral knee pain and pain with ambulation.Medicare Annual Wellness VisitReported bypatient.Diet and Nutrition:discussed portion control; discussed diet improvement Fracture Risk:no history of fractures Physical Activity:discussed exercise habits Depression Risk:no loss of interest in activities; no significant changes in weight; no agitation; no thoughts of suicide;feels sad, empty, or tearful;sleep disturbances or insomnia;loss of energy;feelings of worthlessness or guilt;history of depression Orientation:no disorientation to time; no disorientation to date; no disorientation to place Concentration and Memory:no decreased concentrating ability;memory lapses or loss;forgetting words Speech/Motor difficulties:no speech difficulties; no difficulty expressing formulated concepts; no difficulty with fine manipulative tasks; no difficulty writing/copying; no slowed reaction time; does not knock things over when trying to pick them up Hearing:no loss of hearing (has tinnitus) Vision:no vision problems (wears glasses) Activities of Daily Living:able to bathe with limited or no assistance; able to contol urination and bowels; able to dress with limited or no assistance; able to feed self with limited or no assistance; able to get out of chair or bed with limited or no assistance; able to groom with limited or no assistance; able to toilet with limited or no assistance Instrumental Activities of Daily Living:able to do house work with limited or no assistance; able to grocery shop with limited or no assistance; able to prepare meals with limited or no assistance; able to use the phone with limited or no assistance;unable to manage medications without assistance;unable to manage money without assistance Falls Risk Assessment:no frequent falls while walking; no fall in the past year; no fall since last visit; no dizziness/vertigo Home Safety:working smoke/CO detectors; no vision or hearing loss while driving Shirley Bernstein MD [address], [phone], [facility] 07/23/2024 13:47:13 09/10/2024 text/html Hospitalization Contact RecordReported bypatient.[facility]; admit date: (Please enter in format 'MM/DD/YYYY') (09/08/24); date of discharge: (Please enter in format 'MM/DD/YYYY') (09/09/24); date of contact: (Please enter in format 'MM/DD/YYYY') (09/10/24)Notes:Medica re covered inpatient stay? yesMedicare BNE with in 48 working hours? yesHigh Complexity code valid on or before:SeptemberModerate Complexity code valid on or before:SeptemberHCP on file? noMOLST on file? noDischarge Summary available? yes74 y/o male w/ PMH significant for CAD, HTN, HLD, DM presented to [facility] ED 09/08 after a fall/syncope-reported he was getting out of bed when he felt very weak and weird .-He then fell to the ground because his legs gave out.-Stated that he syncopized but is unsure if he syncopized before or after he fell.-Denied any chest pain or shortness of breath.-States that his legs were very weak and he could not get up for about 20 minutes.- Denied any nausea, vomiting, diarrhea. Reports that he has been slightly constipated.Syncope (R55):Likely vasovagal based on historyTroponin flat, no concern for cardiac arrhythmiaEKG with bifascicular block, it was present in his previous EKG as wellOrthostatic vitals negativePatient currently asymptomatic, walking in the hallway with PVCsPatient has been asked to monitor his blood pressure at home.d/c home in care family - no medication changes 09/10/24 CM f/u call -- no ans - lvm09/13/24 # 2 t/c ful attempt - no ans - lvm09/14/24 Virgie called back re: hospital f/u appt. She states patient is the same. There were no changes in medications and she states matt has had no other episodes since that which sent him to the hospital.CM offered appt w/ PA for next week. what would be the point? He has dementia. He's not any different than he has been. I'm always concerned about him, but every time I call, your office tells me to take him to the emergency department. I don't know what you expect me to do. He's been like this for 2 years. He's not well and you tell me he's not going to get any better, so I don't know what I'm supposed to do. She says they have been seeing neurology regularly. does not drive, so they have to rely on friends for transportation.CM offered to speak to provider about appointments for this patient. Perhaps regularly sched TH appts so that can report any changes and we can make further referrals as needed? agreeable to plan. CM will call back with update later this week. Cindy Martin RN [facility], [facility] 09/14/2024 10:54:12 10/13/2024 text/html Diabetes F/URepo rted bypatient.Context:norm al range of home blood sugars (in the low 100s); not missing doses of medications; no side effects from medications Associated Symptoms:weight gain (5 lbs)Notes:HGA1c today 7.2%.Meds: Ozempic 0.5 mg weekly, Jardiance 25 mg, metfromin ER 750 mg twice a day. Diabetic eye exam report is from 2022. no retinopathy per report in 2022. CKD stg 2 is stable. No microalbuminuria last year.Hypertension F/UReported bypatient.Associated Symptoms:no dizziness; no lightheadedness; no chest pain; no shortness of breath; no palpitations; no edema; no calf pain with exertion Lifestyle:limiting/felix iding salt;not exercising regularly Medications:taking medications as directed; no side effects from medicationNotes:elevat ed blood pressure in office. 74 year old male with recently progressed dementia for diabetes f/u, presents unaccompanied .Last month presented to [facility] ER after syncopal episode. No hospital f/u was scheduled by pt. Pt's usually coordinates his medical care. PT reports also [facility] is now involved and is doing his health evaluations. NO communication available today from the [facility] to review. Blood pressure is elevated in office. PT reports he takes all his meds, but history might not be completely reliable. Yessenia Obrien PA-C [address] [address], [place], [phone], [facility] 10/13/2024 15:05:13
--- OUTSIDE RECORDS SUMMARY | 2024-12-01 14:28 | XMS_ITS | Clinical Summary ---
Author Organization [address] [facility] Address [address] [place] [address] Phone Care Team Providers Care Entertainment Lawyer Name Role Phone Hebert Bernstein MD Primary Care Provider [phone] Allergies No known active allergies Medications vibegron (GEMTESA) 75 mg tablet tablet Take 1 tablet (75 mg total) by mouth 1 (one) time each day. 11/13/19 24 Active sertraline (ZOLOFT) 25 mg tablet Take 0.5 tablets (12.5 mg total) by mouth. 08/06/19 25 Active semaglutide (OZEMPIC) 0.25 mg or 0.5 mg (2 mg/3 mL) injection pen Inject 0.5 mg under the skin 1 (one) time per week. 11/13/19 24 Active omeprazole (PriLOSEC) [address] capsule Take 1 capsule (20 mg total) by mouth 1 (one) time each day. 10/31/19 24 Active neomycin-polymyxi n-dexamethamethas one (POLYDEX) 3.5 mg/g-10,000 unit/g-0.1 % ointment APPLY 1/4 A THIN LAYER LEFT EYE FOUR TIMES A DAY NEEDED FOR PAIN AFTER INJECTION Active mirabegron (MYRBETRIQ) 50 mg tablet extended release 24 hr 24 hr tablet Take 1 tablet (50 mg total) by mouth 1 (one) time each day. 05/09/20 23 Active metFORMIN XR (GLUCOPHAGE-XR) 750 mg 24 hr tablet Take 1 tablet (750 mg total) by mouth 1 (one) time each day. 10/12/19 21 Active memantine (NAMENDA) 5 mg tablet Take 1 tablet (5 mg total) by mouth 2 (two) times a day. for 90 days 07/24/19 25 Active levETIRAcetam (KEPPRA) 500 mg tablet Take 1 tablet (500 mg total) by mouth 2 (two) times a day. 11/13/19 24 Active isosorbide mononitrate (IMDUR) 30 mg 24 hr tablet Take 1 tablet (30 mg total) by mouth 1 (one) time each day. 11/13/19 24 Active irbesartan (AVAPRO) 150 mg tablet Take 1 tablet (150 mg total) by mouth 1 (one) time each day. 07/27/19 25 Active glipiZIDE (GLUCOTROL) 5 mg tablet Take 1 tablet (5 mg total) by mouth 1 (one) time each day. 09/01/19 24 Active fluticasone propionate (FLONASE) 50 mcg/actuation nasal spray Administer 1 spray into each nostril 1 (one) time each day. 07/22/19 25 Active dulaglutide (Trulicity) 4.5 mg/0.5 mL pen injector injection Inject 0.5 mL (4.5 mg total) under the skin. 03/19/20 23 Active donepeziL (ARICEPT) 10 mg tablet Take 1 tablet (10 mg total) by mouth 1 (one) time each day. 11/13/19 24 Active carvediloL (COREG) 6.25 mg tablet Take 1 tablet (6.25 mg total) by mouth 2 (two) times a day. 05/13/20 23 Active atorvastatin (LIPITOR) 80 mg tablet Take 1 tablet (80 mg total) by mouth 1 (one) time each day. 11/13/19 24 Active aspirin 81 mg EC tablet Take 1 tablet (81 mg total) by mouth 1 (one) time each day. 11/13/19 24 Active amLODIPine (NORVASC) 10 mg tablet Take 1 tablet (10 mg total) by mouth 1 (one) time each day. Active alfuzosin (UROXATRAL) 10 mg 24 hr tablet Take 1 tablet (10 mg total) by mouth 1 (one) time each day. 05/09/20 23 Active polyethylene glycol (Golytely) 236-22.74-6.74 -5.86 gram solution Take 4L by mouth once for one dose. May substitue any PEG. Starting at 6PM the night before your procedure drink 1 8oz glasses at your own pace until you complete half of the gallon. Finish 2nd half of the gallon 5 hours before your procedure. 4000 mL 10/09/19 25 Active bisacodyL (DULCOLAX) 5 mg EC tablet Take 2 tablets by mouth right before beginning bowel prep. See instructions provided by the office 2 tablet 10/09/19 25 Active tetracycline (ACHROMYCIN,SUMYC IN) 500 mg capsuleIndication s:H. pylori infection Take 1 capsule (500 mg total) by mouth 4 (four) times a day for 14 days. 56 capsule 10/26/19 25 025 bismuth subsalicylate (PEPTO BISMOL) 262 mg chewable tabletIndications :H. pylori infection Chew 2 tablets (524 mg total) 4 (four) times a day (before meals and nightly) for 14 days. 112 tablet 10/26/19 25 025 omeprazole OTC (PriLOSEC OTC) 20 mg EC tabletIndications :H. pylori infection Take 1 tablet (20 mg total) by mouth 2 (two) times a day for 14 days. 28 tablet 10/26/19 25 025 metroNIDAZOLE (FLAGYL) 250 mg tabletIndications :H. pylori infection Take 1 tablet (250 mg total) by mouth 4 (four) times a day for 14 days. 56 tablet 10/26/19 25 025 Active Problems Problem Noted Date Diagnosed Date Pacemaker 08/20/2024 Seizures ([facility] V24, [facility] V28) 08/20/2024 CAD (coronary artery disease) 08/20/2024 HTN (hypertension) 08/20/2024 PTSD (post-traumatic stress disorder) 08/20/2024 HLD (hyperlipidemia) 08/20/2024 Diabetes mellitus ([facility] V24, [facility] V28) 08/2024 Type 2 diabetes mellitus, wi thout long-term current use of insulin ([facility] V24, [facility] V28) 08/20/2024 Encounters Date Type Department Care Team Description 11/08/2024 Telephone Gastroenterology - [address] [address] [phone] Fernandez Reilly MD 10/28/2024 Telephone Gastroenterology - [address] [place] [phone] Orlin Rae PA 10/25/2024 Telephone Gastroenterology - [address] [phone] Orlin Rae PA 10/22/2024 7:30 AM EDT Anesthesia Event [facility] Endoscopy [address] [place] [phone] Joe Mills MD Claudio, Raymund, CRNA 10/22/2024 6:53 AM EDT - 10/22/2024 11:59 PM EDT Hospital Encounter [facility] Endoscopy [address] [place] [phone] Fernandez Reilly MD Claudio, Raymund, CRNA Saliga, Jesse L, MD Colon cancer screening; Loss of appetite Discharge Disposition: Home or Self Care 10/18/2024 Telephone Gastroenterology - [address] [phone] Fernandez Reilly MD Advice Only from Last 3 Months Surgical History Surgery Date Site/Laterality Comments INSERT / REPLACE / REMOVE PACEMAKER [facility] DIAGNOSTIC HEART CATH RIGHT/LEFT WITH AORTIC STENT PLACEMENT COLONOSCOPY Medical History Medical History Date Comments Seizure ([facility] V24, [facility] V28) CHF (congestive heart failure) ([facility] V24, [facility] V28) Hyperlipidemia Hypertension Diabetes mellitus ([facility] V24, [facility] V28) Dementia ([facility] V24, [facility] V28) Anemia Social History Tobacco Use Types Packs/Day Years Used Date Smoking Tobacco: Former Cigarettes Tobacco Cessation:Counseling Given: Not Answered Alcohol Use Standard Drinks/Week Comments Not Currently 0 (1 standard drink = 0.6 oz pur e alcohol) Interpersonal Safety Answer Date Record ed Physical Abuse 10/22/2024 Verbal Abuse 10/22/2024 Sex and Gender Information Value Date Recorded Sex Assigned at Male 10/20/2024 1:10 PM EDT Legal Sex Male 5:07 PM EST Gender Identity Male 10/20/2024 1:10 PM EDT Sexual Orientation Straight 10/20/2024 1: 10 PM EDT Obstetrics History Last Filed Vital Signs Vital Sign Reading Time Taken Comments Blood Pressure 169/86 10/22/2024 8:18 AM EDT Pulse 65 10/22/2024 8:18 AM EDT Temperature 36.8 C (98.3 F) 10/22/2024 8:04 AM EDT Respiratory Rate 18 10/22/2024 8:18 AM EDT Oxygen Saturation 99% 10/22/2024 8:18 AM EDT Inhaled Oxygen Concentration - - Weight 72.6 kg (160 lb) 10/22/2024 7:27 AM EDT Height 154.9 cm (5' 1 ) 10/22/2024 7:27 AM EDT Body Mass Index 30.23 10/22/2024 7:27 AM EDT Plan of Treatment Health Maintenance Due Date Last Done Comments Diabetes: Annual Foot Exam 1960 Diabetes: Annual Retina Eye Exam 1960 Hepatitis C Screening 04/17/2022 Medicare Annual Wellness Visit 04/17/2022 Social Influencers of Health Screening 04/17/2022 RSV Immunization Adult Patients (1 - 1-dose 75+ series) 2023 Diabetes: Annual Urine Albumin-Creatinine Ratio (uACR) 08/07/2024 Diabetes: Blood Sugar Control Test (HGBA1C) 08/07/2024 COVID-19 Vaccine ( season) 2024 03/09/2024, 02/13/2023, 02/07/2022, Additional history exists Diabetes: Annual GFR (Glomerular Filtration Rate) 12/21/2024 12/22/2023, 12/22/2023, 12/21/2023, Additional history exists Hypertension/CHF/CAD Annual BMP Blood Test 12/21/2024 12/22/2023, 12/22/2023, 12/21/2023, Additional history exists Depression Screening 01/05/2025 01/06/2024 Influenza Vaccine (#1) 2025 , 02/04/2023, 01/17/2023, Additional history exists DTaP,Tdap,and Td Vaccines (2 - Td or Tdap) 02/20/2025 02/20/2015 Falls Risk Assessment 10/22/2025 10/22/2024 Cholesterol Screening (Lipid Panel) 12/19/2028 12/20/2023 Pneumococcal Vaccine: 50+ Years Completed 01/17/2016, 10/24/2014, 03/02/2009 Zoster Vaccines Completed 03/10/2019, 12/18, 05/19/2018, Additional history exists Colorectal Cancer Screening: Colonoscopy Discontinued 10/22/2024, 07/30/2024 HIB Vaccines Aged Out No longer eligi [...] on patient's age to complete this topic MMR Vaccines Aged Out No longer eligi ble based on patient's age to complete this topic Meningococcal ACWY Vaccine Aged Out N o longer eligible based on patient's age to complete this topic Meningococcal B Vaccine Aged Out No l onger eligible based on patient's age to complete this topic RSV Immunization Patients Under 20 months Aged Out No longer eligible based on patient's age to complete this topic Varicella Vaccines Aged Out No longer eligible based on patient's age to complete this topic Procedures Procedure Name Priority Date/Time Associated Diagnosis Comments COLONOSCOPY Routine 10/22/2024 7:57 AM EDT Colon cancer screening Loss of appetite EGD Routine 10/22/2024 7:57 AM EDT Colon cancer screening Loss of appetite TISSUE EXAM Routine 10/22/2024 7:45 AM EDT Colon cancer screening Loss of appetite from Last 3 Months Results * COLONOSCOPY Anesthesia - MAC; SP ENDOSCOPY (10/22/2024 7:57 AM EDT) Anatomical Region Laterality Modality Other 10/22/2024 7:22 AM EDT Impressions 10/22/2024 7:57 AM EDT - Diverticulosis in the entire examined colon. - Normal mucosa in the entire examined colon. Biopsied. - Non-bleeding internal hemorrhoids. - The examination was otherwise normal on direct and retroflexion views. Recommendation: - Perform an upper GI endoscopy today. Narrative 10/22/2024 7:[address] [facility] GI Patient Name: Latoya Wolff Procedure Date: 10/22/2024 7:22 AM Date of : 1950 Age: 74 Room: ROOM 14 Gender: Male Note Status: Finalized Attending MD: Fernandez Reilly MD, Procedure Date No Time: 10/22/2024 Procedure: Colonoscopy Indications: Screening for colorectal malignant neoplasm Providers: Fernandez Reilly MD Referring MD: Fernandez Reilly MD Medicines: Monitored Anesthesia Care Complications: No immediate complications. Estimated Blood Loss: Estimated blood loss: none. Procedure: Pre-Anesthesia Assessment: - ASA Grade Assessment: III - A patient with severe systemic disease. - After reviewing the risks and benefits, the patient was deemed in satisfactory condition to undergo the procedure. After I obtained informed consent, the scope was passed under direct vision. Throughout the procedure, the patient's blood pressure, pulse, and oxygen saturations were monitored continuously.The Olympus Pediatric Colonoscope was introduced through the anus and advanced to the cecum, identified by appendiceal orifice and ileocecal valve. The colonoscopy was performed without difficulty. The patient tolerated the procedure well. The quality of the bowel preparation was adequate. Findings: Multiple small and large-mouthed diverticula were found in the entire colon. Normal mucosa was found in the entire colon. Biopsies were taken with a cold forceps for histology. Estimated blood loss was minimal. Non-bleeding internal hemorrhoids were found during retroflexion. The hemorrhoids were small. The exam was otherwise without abnormality on direct and retroflexion views. Procedure Code(s): --- Professional --- 77516, Colonoscopy, flexible; with biopsy, single or multiple Diagnosis Code(s): --- Professional --- Z12.11, Encounter for screening for malignant neoplasm of colon CPT copyright 2020 [employer]. All rights reserved. The codes documented in this report are preliminary and upon seafood fisherman review may be revised to meet current compliance requirements. Fernandez Reilly MD 10/22/2024 7:57:30 AM This report has been signed electronically.Fernandez Reilly MD Number of Addenda: 0 Note Initiated On: 10/22/2024 7:22 AM Scope In: Scope Out: Endoscopy Department at [facility] - [address] [place] [phone] Procedure Note Fernandez Reilly MD - 10/22/[address] [facility] GI Patient Name: Latoya Wolff Procedure Date: 10/22/2024 7:22 AM Date of : 1950 Age: 74 Room: ROOM 14 Gender: Male Note Status: Finalized Attending MD: Fernandez Reilly MD, Procedure Date No Time: 10/22/2024 Procedure: Colonoscopy Indications: Screening for colorectal malignant neoplasm Providers: Fernandez Reilly MD Referring MD: Fernandez Reilly MD Medicines: Monitored Anesthesia Care Complications: No immediate complications. Estimated Blood Loss: Estimated blood loss: none. Procedure: Pre-Anesthesia Assessment: - ASA Grade Assessment: III - A patient with severe systemic disease. - After reviewing the risks and benefits, thepatient was deemed in satisfactory condition to undergo the procedure. After I obtained informed consent, the scope was passed under direct vision. Throughout theprocedure, the patient's blood pressure, pulse, and oxygen saturations were monitored continuously.The Olympus Pediatric Colonoscope was introduced through theanus and advanced to the cecum, identified byappendiceal orifice and ileocecal valve. The colonoscopy was performed without difficulty. The patient tolerated the procedure well. The quality of the bowel preparation was adequate. Findings: Multiple small and large-mouthed diverticula were found in the entire colon. Normal mucosa was found in the entire colon.Biopsies were taken with a cold forceps for histology. Estimated blood loss was minimal. Non-bleeding internal hemorrhoids were found during retroflexion. The hemorrhoids were small. The exam was otherwise without abnormality ondirect and retroflexion views. Procedure Code(s): --- Professional --- 41583, Colonoscopy, flexible; with biopsy, singleor multiple Diagnosis Code(s): --- Professional --- Z12.11, Encounter for screening for malignantneoplasm of colon CPT copyright 2020 [employer]. All rights reserved. The codes documented in this report are preliminary and upon seafood fisherman reviewmay be revised to meet current compliance requirements. Fernandez Reilly MD 10/22/2024 7:57:30 AM This report has been signed electronically.Fernandez Reilly MD Number of Addenda: 0 Note Initiated On: 10/22/2024 7:22 AM Scope In: Scope Out: Endoscopy Department at [facility] - [address] [place] [phone] IMPRESSION: - Diverticulosis in the entire examined colon. - Normal mucosa in the entire examined colon.Biopsied. - Non-bleeding internal hemorrhoids. - The examination was otherwise normal on directand retroflexion views. Recommendation: - Perform an upper GI endoscopy today. Fernandez Reilly MD GI~PROCEDURE ORDERABLES Final Result * EGD Anesthesia - MAC; [facility] ENDOSCOPY (10/22/2024 7:57 AM EDT) Anatomical Region Laterality Modality Other 10/22/2024 7:22 AM EDT Impressions 10/22/2024 7:59 AM EDT - Z-line regular, 40 cm from the incisors. - Congested, erythematous and friable (with contact bleeding) mucosa in the stomach. Biopsied. - Normal examined duodenum. Biopsied. Recommendation: - Discharge patient to home. - High fiber diet. - Continue present medications. - Await pathology results. - Return to GI clinic as previously scheduled. Narrative 10/22/2024 7:[address] [facility] GI Patient Name: Latoya Wolff Procedure Date: 10/22/2024 7:22 AM Date of : 1950 Age: 74 Room: ROOM 14 Gender: Male Note Status: Finalized Attending MD: Fernandez Reilly MD, Procedure Date No Time: 10/22/2024 Procedure: Upper GI endoscopy Indications: Epigastric abdominal pain, Gastro-esophageal reflux disease Providers: Fernandez Reilly MD Referring MD: Fernandez Reilly MD Medicines: Monitored Anesthesia Care Complications: No immediate complications. Estimated Blood Loss: Estimated blood loss: none. Procedure: Pre-Anesthesia Assessment: - ASA Grade Assessment: III - A patient with severe systemic disease. - After reviewing the risks and benefits, the patient was deemed in satisfactory condition to undergo the procedure. After obtaining informed consent, the endoscope was passed under direct vision. Throughout the procedure, the patient's blood pressure, pulse, and oxygen saturations were monitored continuously.The Endoscope was introduced through the mouth, and advanced to the third part of duodenum. The upper GI endoscopy was accomplished without difficulty. The patient tolerated the procedure well. Findings: The Z-line was regular and was found 40 cm from the incisors. Patchy mild mucosal changes characterized by congestion, erythema and friability (with contact bleeding) were found in the entire examined stomach. Biopsies were taken with a cold forceps for histology. Estimated blood loss was minimal. The exam of the stomach was otherwise normal. The examined duodenum was normal. Biopsies were taken with a cold forceps for histology. Estimated blood loss was minimal. Procedure Code(s): --- Professional --- 80663, Esophagogastroduodenoscopy, flexible, transoral; with biopsy, single or multiple Diagnosis Code(s): --- Professional --- R10.13, Epigastric pain K92.2, Gastrointestinal hemorrhage, unspecified CPT copyright 2020 [employer]. All rights reserved. The codes documented in this report are preliminary and upon seafood fisherman review may be revised to meet current compliance requirements. Fernandez Reilly MD 10/22/2024 7:59:04 AM This report has been signed electronically.Fernandez Reilly MD Number of Addenda: 0 Note Initiated On: 10/22/2024 7:22 AM Scope In: Scope Out: Endoscopy Department at [facility] - [address] [place] [phone] Procedure Note Fernandez Reilly MD - 10/22/[address] [facility] GI Patient Name: Latoya Wolff Procedure Date: 10/22/2024 7:22 AM Date of : 1950 Age: 74 Room: ROOM 14 Gender: Male Note Status: Finalized Attending MD: Fernandez Reilly MD, Procedure Date No Time: 10/22/2024 Procedure: Upper GI endoscopy Indications: Epigastric abdominal pain, Gastro-esophageal reflux disease Providers: Fernandez Reilly MD Referring MD: Fernandez Reilly MD Medicines: Monitored Anesthesia Care Complications: No immediate complications. Estimated Blood Loss: Estimated blood loss: none. Procedure: Pre-Anesthesia Assessment: - ASA Grade Assessment: III - A patient with severe systemic disease. - After reviewing the risks and benefits, thepatient was deemed in satisfactory condition to undergo the procedure. After obtaining informed consent, the endoscope was passed under direct vision. Throughout theprocedure, the patient's blood pressure, pulse, and oxygen saturations were monitored continuously.TheEndoscope was introduced through the mouth, and advanced tothe third part of duodenum. The upper GI endoscopy was accomplished without difficulty. The patienttolerated the procedure well. Findings: The Z-line was regular and was found 40 cm from the incisors. Patchy mild mucosal changes characterized by congestion, erythema and friability (with contact bleeding) were found in the entire examinedstomach. Biopsies were taken with a cold forceps forhistology. Estimated blood loss was minimal. The exam of the stomach was otherwise normal. The examined duodenum was normal. Biopsies weretaken with a cold forceps for histology. Estimated blood loss was minimal. Procedure Code(s): --- Professional --- 18361, Esophagogastroduodenoscopy, flexible, transoral; with biopsy, single or multiple Diagnosis Code(s): --- Professional --- R10.13, Epigastric pain K92.2, Gastrointestinal hemorrhage, unspecified CPT copyright 2020 [employer]. All rights reserved. The codes documented in this report are preliminary and upon seafood fisherman reviewmay be revised to meet current compliance requirements. Fernandez Reilly MD 10/22/2024 7:59:04 AM This report has been signed electronically.Fernandez Reilly MD Number of Addenda: 0 Note Initiated On: 10/22/2024 7:22 AM Scope In: Scope Out: Endoscopy Department at [facility] - [address] [place] [phone] IMPRESSION: - Z-line regular, 40 cm from the incisors. - Congested, erythematous and friable (with contact bleeding) mucosa in the stomach. Biopsied. - Normal examined duodenum. Biopsied. Recommendation: - Discharge patient to home. - High fiber diet. - Continue present medications. - Await pathology results. - Return to GI clinic as previously scheduled. us Fernandez Reilly MD GI~PROCEDURE ORDERABLES Final Result * Tissue exam (10/22/2024 7:45 AM EDT) Final Diagnosis A. Colon, random biopsies: - Colonic mucosa with mild superficial lymphoplasmacytosis and rare lamina propria neutrophils, compatible with focal, minimally active (non-specific) colitis. B. Small Intestine, Duodenum, biopsies: - Duodenal mucosa with preserved villi and no specific pathologic changes. - Negative for increased intraepithelial lymphocytes. C. Gastric, Antrum, biopsies: - Gastric antral mucosa with active chronic gastritis. - Helicobacter pylori organisms are morphologically identified. 9:14 AM EDT [facility] LAB Gross Description A. Colon, random biopsies: Labeled random colon bi . Received in formalin are eight soft to rubbery, denton-pink tissue fragments, ranging from 0.2 cm to 1.1 cm, in greatest diameters, which are wrapped in paper and submitted in toto in one cassette, eight pieces, multiple levels. B. Small Intestine, Duodenum, biopsies: Labeled duodenum biopsies . Received in formalin are five soft to rubbery, velvety, denton-pink tissue fragments ranging from 0.2 cm to 0.5 cm, in greatest diameters, which are wrapped in paper and submitted in toto in one cassette, five pieces, multiple levels. C. Gastric, Antrum, biopsies: Labeled gastric, ant biopsies . Received in formalin are four soft to rubbery, denton-pink to red tissue fragments ranging from 0.2 cm x 0.6 cm, in greatest diameters, which are wrapped in paper and submitted in toto in one cassette, four pieces, multiple levels. dvb/DG 9:14 AM EDT [facility] Disclaimer Unless otherwise specified, all tissue is 10% NB formalin fixed and paraffin embedded. 9:14 AM EDT [facility] Tissue Colon structure / Unknown 10/22/2024 7:45 AM EDT 10/22/2024 9:58 AM EDT Tissue specimen (specimen) Duodenal structure / Unknown 10/22/2024 7:53 AM EDT 10/22/2024 9:58 AM EDT Tissue specimen (specimen) Pyloric antrum structure / Unknown 10/22/2024 7:54 AM EDT 10/22/2024 9:58 AM EDT Fernandez Reilly MD LAB PATHOLOGY ORDERABLES Jaimie de santiago Result [facility] [address] [place] [address], from Last 3 Months Insurance MEDICARE [facility] Care Teams Entertainment Lawyer Relationship Specialty Start Date End Date Hebert Bernstein MD PCP - General 01/08/23
--- OUTSIDE RECORDS SUMMARY | 2024-12-01 14:28 | XMS_ITS | Encounter Summary ---
Author Organization [facility] Address [address] [place] [id number] Care Team Providers Care General Milling Superintendent Name Role Phone Hebert Bernstein MD Primary Care Provider [phone] Encounter Details Date Type Department Care Team (Late st Contact Info) Description 01/07/2024 Scanned Document Cardiovascular Medicine at [address] [place] [address], [address] [place] [address] Lydia Brar, LEAD SYSTEMS ANALYST [address] [facility] [address] [place] [id number] Social History Tobacco Use Types Packs/Day Years Used Date Smoking Tobacco: Former Cigarettes [facility] Utilities Answer Date Recorded In the past 12 months has [employer] electric, gas, oil, or water company threatened to shut off services in your home? Patient declined 12/20/2023 AUDIT-C Answer Date Recorded Q1: How often do you have a drink containing alc ohol? Never 12/20/2023 Q2: How many drinks containi ng alcohol do you have on a typical day when you are drinking? 1 or 2 12/20/2023 Q3: How often do you have six or more drinks on one occasion? Never 12/20/2023 PHQ-2 Answer Date Recorded PHQ-2 Total Score 1 01/06/2024 Hunger Vital Sign Answer Date Recorded Within the past 12 months, y ou worried that your food would run out before you got the money to buy more. Patient declined Within the past 12 months, t he food you bought just didn't last and you didn't have money to get more. Patient declined 07/2023 PRAPARE - Transportation Answer Date Re corded In the past 12 months, has l ack of transportation kept you from medical appointments or from getting medications? Patient declined 12/20/2023 In the past 12 months, has l ack of transportation kept you from meetings, work, or from getting things needed for daily living? Patient declined 12/20/2023 Housing Stability Answer Date Recorded What is your living situation today? I have a kyung place to live 12/20/2023 Housing Stability Not on file 12/20/2023 Interpersonal Safety Answer Date Record ed Is there anyone in your life that is hurting or threatening you in anyway? no 12/20/2023 Physical Indicators of Abuse No evidence of phys ical abuse 12/20/2023 Sex and Gender Information Value Date Recorded Sex Assigned at Male 03/03/2022 11:28 AM EDT Legal Sex Male 9:28 PM EDT Gender Identity Not on file Sexual Orientation Straight 03/03/2022 11 :28 AM EDT documented as of this encounter Plan of Treatment Not on file documented as of this encounter Procedures Procedure Name Priority Date/Time Associated Diagnosis Comments PACEMAKER INTERROGATION-IN OFFICE Routine 01/06/2024 4:39 PM EDT documented in this encounter Results * Pacemaker Interrogation-In Office (01/06/2024 4:39 PM EDT) Anatomical Region Laterality Modality Chest Other us Lydia Duris LEAD SYSTEMS ANALYST CAR DEVICE INTER ORDERABLES Fin al Result documented in this encounter Visit Diagnoses Not on filedocumented in this encounter Additional Health Concerns Assessment Noted Time PHQ-9 Depression Total Score: 1 01/06/20 1:12 PM EDT documented as of this encounter Care Teams General Milling Superintendent Relationship Specialty Start Date End Date Hebert Bernstein MD [address] [id number] PCP - General Internal Medicine 12/19/23 documented as of this encounter
== END 2024-12-01 13:59 | disposition home or self-care (01) ==
LOC: HO.HCS 13:37
PROVIDERS: PCP Internal Medicine; Visit Provider Internal Medicine
DX: I25.10 Atherosclerotic heart disease of native coronary artery without angina pectoris (principal); I44.2 Atrioventricular block, complete; I10 Essential (primary) hypertension
CPT/HCPCS: 99214

== ENCOUNTER → 2024-12-01 13:36 | Outpatient (BNVA) | payer MEDICARE, OTHER, SELFPAY | PROVIDERS: PCP Internal Medicine; Visit Provider Internal Medicine | DX: I25.10 Atherosclerotic heart disease of native coronary artery without angina pectoris (principal); I44.2 Atrioventricular block, complete; I10 Essential (primary) hypertension; Z79.82 Long term (current) use of aspirin; Z79.84 Long term (current) use of oral hypoglycemic drugs; Z79.899 Other long term (current) drug therapy | CPT/HCPCS: 99212 ==

== ENCOUNTER → 2025-01-20 23:59 | Outpatient (BNV) | payer MEDICARE, OTHER, SELFPAY ==
--- NOTE | 2025-02-03 20:48 | A.OFFVIS_ITS ---
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 Overall normal device function. [id number] Cardiac Device Interrogation, pacemaker Procedure code (CPT) selection complete Assessment & Plan Assessment & Plan (1) Pacemaker: Code(s): Z95.0 - Presence of cardiac pacemaker Category: Surgical (2) Complete heart block: Code(s): I44.2 - Atrioventricular block, complete Category: Medical Plan x Coding Level of Care Code Procedure Only Diagnoses Pacemaker Z95.0 Complete heart block I44.2 CPT Codes Cardiac Device Check - Cardiac Device 12: [id number] Cardiac Device Interrogation, pacemaker ([id number])
== END ==
PROVIDERS: PCP Internal Medicine; Visit Provider Internal Medicine
DX: I44.2 Atrioventricular block, complete (principal); Z95.0 Presence of cardiac pacemaker
CPT/HCPCS: 93294

== ENCOUNTER 2025-04-27 10:43 | Outpatient (AMB) | payer MEDICARE, OTHER, SELFPAY ==
--- NOTE | 2025-04-27 10:45 | A.OFFVIS_ITS ---
Intake Visit Reasons: follow up 6m AD Allergies No Known Allergies Allergy (Verified 06/05/23 15:02) HPI Comments Details: 75 yo man with h/o exposure to agent orange in [place], PTSD, type 2 diabetes, coronary artery disease s/p cardiac pacemaker placement, and hypertension is seen for dementia, and a generalized seizure in Apr. 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 He is presenting with worsening memory and symptoms of depression. He is a who was diagnosed with [place] exposure, leading to a 100% disability status, and was told he could no longer work. Following the cessation of work, he developed depression. The patient reports experiencing sleep disturbances, including falling asleep during the day and difficulty sleeping at night due to thinking about his time in [place]. He believed he was taking medication for depression, but after confirming with his via phone call, it was determined he is not on any antidepressant medication. His past medical history is notable for a pacemaker placement. He receives care through the [place] system, where he has undergone blood tests and pupil tests, and is scheduled for further analysis in [place] next week. He also receives therapy and counseling from the [place] in [place]. 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 - Psychiatric: Reports depression, falling asleep during the day, and insomnia due to intrusive thoughts about [place]. - Ophthalmologic: Reports his eyes are worsening. Physical Exam Neuro Other: Mental Status: Alert and oriented to person, place, and time. Normal attention. Normal spontaneous speech, fluency, and comprehension. Affect is depressed. Cranial Nerves: CN II: Visual rojas full to confrontation, visual acuity intact. CN III, IV, : Pupils equal, round, reactive to light and accommodation. Extraocular movements are normal. CN V: Facial sensation is normal. CN VII: Facial movements symmetrical. CN VIII: Hearing intact to bedside conversation is normal. CN IX, X: Palate elevates symmetrically. CN XI: Shoulder shrug and head turn symmetrical. CN XII: Tongue midline without atrophy or fasciculations. Extrapyramidal: Full facial expressions and blinking. No rigidity. Movements are appropriate wi th no tremor or abnormality. Speech: Normal; no dysarthria or tremor. Assessment & Plan Assessment & Plan (1) Mixed Alzheimer's and vascular dementia: Comment: MRI brain WO at [facility] in September 2022: mild diff atrophy, mild MVD, R cospus striatal area lesions, probably a venous angioma. Code(s): G30.9 - Alzheimer's disease, unspecified; F01.50 - Vascular dementia, unspecified severity, without behavioral disturbance, psychotic disturbance, mood disturbance, and anxiety; F02.80 - Dementia in other diseases classified elsewhere, unspecified severity, without behavioral disturbance, psychotic disturbance, mood disturbance, and anxiety Category: Medical (2) Seizure disorder: Code(s): G40.909 - Epilepsy, unspecified, not intractable, without status epilepticus Category: Medical Plan Impression: a: Dementia, proabably of Alzheimer type, moderate b: Chronic PTSD with h/o [place] exposure c: Seizure disorder Rec: a: [facility] b: Donepezil 10mg daily c: Memantine 10mg bid d: Levetiracetam 750mg bid e: Start Sertraline 50mg one in am I confirmed with the patient and his that he is not currently taking any medication for his depression. I explained that he would benefit from an antidepressant, and he agreed to start a new medication. I instructed him to take one pill with breakfast each day and sent the prescription to his preferred [facility] pharmacy. I [facility] and scheduled a follow-up visit here in two months. Medications: New levetiracetam 750 mg PO BID 180 tabs 1RF sertraline 50 mg PO DAILY 90 tabs 0RF donepezil 10 mg PO BEDTIME 90 tabs 1RF memantine 10 mg PO BID 180 tabs 1RF Coding Level of Care Code Est Pt Level 4 (49575) Diagnoses Mixed Alzheimer's and vascular dementia G30.9; F01.50; F02.80 Seizure disorder G40.909
== END 2025-04-27 11:54 | disposition home or self-care (01) ==
LOC: HO.HSM 10:43
PROVIDERS: PCP Internal Medicine; Referring Provider Internal Medicine; Visit Provider Psychiatry & Neurology Neurology
DX: G30.9 Alzheimer's disease, unspecified (principal); F01.50 Vascular dementia, unspecified severity, without behavioral disturbance, psychotic disturbance, mood disturbance, and anxiety; F02.80 Dementia in other diseases classified elsewhere, unspecified severity, without behavioral disturbance, psychotic disturbance, mood disturbance, and anxiety; G40.909 Epilepsy, unspecified, not intractable, without status epilepticus
CPT/HCPCS: 99214

== ENCOUNTER → 2025-04-27 10:43 | Outpatient (BNVA) | payer MEDICARE, OTHER, SELFPAY | PROVIDERS: PCP Internal Medicine; Referring Provider Internal Medicine; Visit Provider Psychiatry & Neurology Neurology | DX: G30.9 Alzheimer's disease, unspecified (principal); F01.50 Vascular dementia, unspecified severity, without behavioral disturbance, psychotic disturbance, mood disturbance, and anxiety; G40.909 Epilepsy, unspecified, not intractable, without status epilepticus; F43.12 Post-traumatic stress disorder, chronic; Z77.39 Contact with and (suspected) exposure to other war theater | CPT/HCPCS: 99212 ==

== ENCOUNTER → 2025-05-09 12:19 | Outpatient (BNV) | payer MEDICARE, OTHER, SELFPAY | PROVIDERS: PCP Internal Medicine; Visit Provider Internal Medicine | DX: I44.2 Atrioventricular block, complete (principal) | CPT/HCPCS: 93294 ==